=== PATIENT | female | born 1955 | race Caucasian/White ===

== ENCOUNTER 2021-10-08 15:11 | Emergency (ER) | payer MEDICAID, SELFPAY ==
--- NOTE | ~2021-10-08 | CT_ITS ---
EXAMINATION: CT abdomen pelvis w con DATE: 10/08/2021 16:56 INDICATION: Abdominal pain. History of diverticulitis. TECHNIQUE: Computed tomography (CT) of the abdomen and pelvis was performed with 100 CC Omnipaque 350 intravenous contrast. Automated exposure control and iterative reconstruction technique were employe d. Exam dose: 1291.07 mGy-cm total exam DLP. COMPARISON: None. FINDINGS: The lung bases are clear of consolidation. Normal heart size. No pericardial or pleural eff usion. Calcified left hilar nodes, consistent with old granulomatous disease. Small sliding hiatal hernia. The liver, gallbladder, spleen, pancreas are unremarkable except for a calcification of the body of t he pancreas which may indicate mild chronic pancreatitis. No bile duct or pancreatic duct dilatation. No gallbladder wall thickening or pericholecystic fluid or fat stranding. Normal morphology of the adrenal glands. No renal mass lesion or urinary tract calculus or hydroureteronephrosis. The urinary bladder is unrem arkable. Normal caliber and atherosclerotic calcification of the abdominal aorta. No intraperitoneal or retrop eritoneal or pelvic mass lesion or adenopathy or ascites. Status post hysterectomy. There is prominent pericolic fat stranding at the distal descending and proximal sigmoid colon in the left lower quadrant, in addition to some lateral conal fascial thickening, consistent with diverticu litis, without evidence of abscess. There are numerous diverticula of the sigmoid: Distal descending colon. No bowel obstruction is evident. Normal appendix. Small fat-containing umbilical hernia. No suspicious osteolytic or osteoblastic lesions. There is degenerative spurring of the lower thoraci c spine. Mildly severe degenerative disc disease at L2-3. IMPRESSION: Diverticulitis at the junction of the distal descending and proximal sigmoid colon in th e left lower quadrant; no abscess Small sliding hiatal hernia Normal appendix Mild chronic pancreatitis Reviewed, dictated and finalized at [facility]. Reviewed, dictated and finalized at [facility]. IMPRESSION: Diverticulitis at the junction of the distal descending and proxim al sigmoid colon in the left lower quadrant; no abscess Small sliding hiatal hernia Normal appendix Mild chronic pancreatitis
[2021-10-08 15:26] VITALS: BP 149/67; PULSE 88; RESP 18; TEMP 37.1; O2SAT 99
[2021-10-08 16:01] LABS: Basophils Percent Auto 0.3 % (0.2-1.2); Eosinophils Absolute Auto 0.2 K/mm3 (0-0.3); Eosinophils Percent Auto 2.3 % (0-4.4); Hematocrit 41.3 % (37.0-47.0); Hemoglobin 13.4 g/dL (12.0-15.0); Immature Granulocyte Absolute 0.02 K/mm3 (0.00-0.031); Immature Granulocyte Percent A 0.2 % (0-0.5); Lymphocytes Absolute Auto 1.86 K/mm3 (0.9-3.2); Lymphocytes Percent Auto 20.4 % (18.3-44.2); Mean Corpuscular HGB Conc 32.4 g/dl (32-36); Mean Corpuscular Hemoglobin 28.8 pg (26-34); Mean Corpuscular Volume 88.6 fl (80-100); Mean Platelet Volume 9.1 fl (7.4-10.4); Monocytes Absolute Auto 0.4 K/mm3 (0.1-0.6); Monocytes Percent Auto 4.6 % (2.6-8.5); Neutrophils Absolute Auto 6.6 K/mm3 (1.3-6.7); Neutrophils Percent Auto 72.2 % (45.5-73.1); Platelet Count Result 210 k/mm3 (150-375); Red Blood Count 4.66 M/mm3 (4.2-5.4); Red Cell Distribution Width 11.9 % (11.5-14.5); White Blood Count 9.1 K/mm3 (4.5-10.0)
[2021-10-08 16:04] LABS: Add Urine Microscopic? NO; Appearance Urine Clear (Clear); Bilirubin Urine Negative (Negative); Blood Urine Negative (Negative); Color Urine Yellow (Yellow); Glucose Urine UA Negative (Negative); Ketones Urine Negative (Negative); Leukocyte Esterase Ur Negative LEU/UL (Negative); Nitrate Urine Negative (Negative); Protein Urine Negative (Negative); Specific Grav Ur 1.016 (1.001-1.035); Urobilinogen Urine Negative mg/dL (<2.0)
[2021-10-08 16:13] LABS: Alanine Aminotransferase 31 U/L (4-35); Albumin Level 4.6 g/dL (3.5-5.1); Alkaline Phosphatase 97 U/L (38-126); Anion Gap 9 mmol/L (8-16); Aspartate Amino Transferase 36 U/L (14-36); Bilirubin,Total 0.6 mg/dL (0.2-1.3); Blood Urea Nitrogen 13 mg/dL (7-17); Calcium 9.2 mg/dL (8.4-10.2); Carbon Dioxide 25 mmol/L (22-30); Chloride 102 mmol/L (98-107); Estimated CRCL calculation 77 ml/min; Estimated Glomerular Filt Rate > 60; Glucose 165 mg/dL (65-110); Lipase 99 U/L (23-300); Potassium 3.9 mmol/L (3.4-5.0); Sodium 136 mmol/L (137-145)
[2021-10-08] MEDS: SODIUM CHLORIDE 0.9% IV 1,000 ML 999 ML IV CONT (16:13)
[2021-10-08 17:14] VITALS: BP 146/66; PULSE 82; RESP 14; O2SAT 100
[2021-10-08 18:13] VITALS: BP 134/78; PULSE 85; RESP 15; O2SAT 100
--- NOTE | 2021-10-08 19:37 | ED.ABDPAIN ---
HPI - Abdominal Pain General Chief Complaint: Abdominal Pain Stated Complaint: pain in lower left side, hx diverticulitis Time Seen by Provider: 10/08/21 15:59 Source: patient and RN notes reviewed Mode of arrival: ambulatory Limitations: no limitations History of Present Illness HPI narrative: Patient is 66 years old white female presented to the ED with left lower quadrant pain that started 1 week ago associated with intermittent diarrhea. Patient reported having similar symptoms in the past secondary to diverticulitis. She denies any fever, chills, nausea, vomiting. Related Data Allergies Allergy/AdvReac Type Severity Reaction Status Date / Time Penicillins Allergy Hives Verified 10/08/21 15:49 Review of Systems Review of Systems: All systems reviewed & are unremarkable except as noted in HPI and below Exam Narrative: General appearance: Well-developed, well-nourished Skin: Normal color Head: Normocephalic, nontraumatic Eyes: Clear conjunctiva ENT: Oropharynx normal, ears normal, nose normal Neck: Supple, nontender Chest and respiratory: Airway patent, no respiratory distress, no accessory muscle use Heart: Regular rate/rhythm Abdomen: Soft, diffuse tenderness lower abdomen mainly left lower quadrant, slight guarding, no rebound, slight no organomegaly, quiet bowel sounds Vascular: Normal peripheral pulses, normal capillary refill. Musculoskeletal: Normal range of motion, nontender back Neurologic: Alert and oriented ?3, [employer] is normal as tested, no gross motor deficit Course Course Emergency Course: Diverticulitis, stable Vital Signs Vital signs: Vital Signs Temperature 37.1 C 10/08/21 15:26 Pulse Rate 88 10/08/21 15:26 Respiratory Rate 18 10/08/21 15:26 Blood Pressure 149/67 H 10/08/21 15:26 Pulse Oximetry 99 10/08/21 15:26 Temperature 37.1 C 10/08/21 15:26 Pulse Rate 85 10/08/21 18:13 Respiratory Rate 15 10/08/21 18:13 Blood Pressure 134/78 10/08/21 18:13 Pulse Oximetry 100 10/08/21 18:13 MDM - Abdominal Pain Differential Diagnosis Differential diagnosis: Likely abdominal pain, acute appendicitis, constipation, diverticulitis, pancreatitis and small bowel obstruction Lab Data Result diagrams: 10/08/21 15:51 10/08/21 15:51 Labs: Lab Results 10/08/21 10/08/21 10/08/21 Range/Units 15:51 15:51 15:51 WBC 9.1 (4.5-10.0) K/mm3 RBC 4.66 (4.2-5.4) M/mm3 Hgb 13.4 (12.0-15.0) g/dL Hct 41.3 (37.0-47.0) % MCV 88.6 (80-100) fl MCH 28.8 (26-34) pg MCHC 32.4 (32-36) g/dl RDW 11.9 (11.5-14.5) % Plt Count 210 (150-375) k/mm3 MPV 9.1 (7.4-10.4) fl Immature Gran % (Auto) 0.2 (0-0.5) % Neut % (Auto) 72.2 (45.5-73.1) % Lymph % (Auto) 20.4 (18.3-44.2) % [place] % (Auto) 4.6 (2.6-8.5) % Eos % (Auto) 2.3 (0-4.4) % Baso % (Auto) 0.3 (0.2-1.2) % Lymph # (Auto) 1.86 (0.9-3.2) K/mm3 [place] # (Auto) 0.4 (0.1-0.6) K/mm3 Eos # (Auto) 0.2 (0-0.3) K/mm3 Baso # (Auto) 0.0 (0.0-0.1) K/mm3 Abs Immat Gran (auto) 0.02 (0.00-0.031) K/mm3 Absolute Neuts (auto) 6.6 (1.3-6.7) K/mm3 Absolute Nucleated RBC 0.0 (0.0-0.012) K/mm3 Nucleated RBC % 0.0 (0.0-0.2) % Sodium 136 L (137-145) mmol/L Potassium 3.9 (3.4-5.0) mmol/L Chloride 102 (98-107) mmol/L Carbon Dioxide 25 (22-30) mmol/L Anion Gap 9 (8-16) mmol/L BUN 13 (7-17) mg/dL Creatinine 0.70 (0.7-1.0) mg/dL Estim Creat Clear Calc 77 ml/min Estimated GFR > 60 (59 - ) Glucose 165 H (65-110) mg/dL Calcium 9.2 (8.4-10.2) mg/dL Total Bilirubin 0.6 (0.2-1.3) mg/dL AST 36 (1
[2021-10-08] MEDS: metroNIDAZOLE 250 MG TABLET 500 MG PO (20:47)
[2021-10-08 20:48] VITALS: BP 162/92; PULSE 82; RESP 16; O2SAT 100
[2021-10-08] MEDS: levoFLOXacin 750 MG TABLET PO (20:48)
== END 2021-10-08 20:57 | disposition home or self-care (01) ==
PROVIDERS: Emergency Provider Emergency Medicine
DX: K57.32 Diverticulitis of large intestine without perforation or abscess without bleeding (principal)
CPT/HCPCS: 36415; 74177; 80053; 81003; 83690; 85025; 96360; 99284; A9270; J7030; Q9967

== ENCOUNTER 2024-09-23 13:51 | Emergency (ER) | payer MEDICARE, MEDICAID, SELFPAY ==
--- NOTE | ~2024-09-23 | XR_ITS ---
EXAMINATION: XR foot LT min 3V DATE: 09/23/2024 14:31 INDICATION: Left foot pain and swelling post fall TECHNIQUE: Dorsoplantar, two oblique and lateral views of the left foot were obtained. COMPARISON: None. FINDINGS: Subtle nondisplaced fracture at the neck of the fifth metatarsal. Alignment remains essentially anato kajal. No other acute fractures identified. There is flattening of the articular surface at the head of the second metatarsal without underlying subarticular lucency or sclerosis consistent with sequela o f chronic osteonecrosis (Freiberg's infraction). Small Achilles and plantar calcaneal spurs. 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 Mild soft tissue swelling at the dorsolateral aspect of the forefoot. No ankle joint effu gus. IMPRESSION: 1. Nondisplaced extra articular fracture at the distal neck of the right fifth metatarsal. Reviewed, dictated and finalized at location A.
[2024-09-23 14:00] VITALS: BP 153/91; PULSE 91; RESP 20; TEMP 36.8; O2SAT 99
--- NOTE | 2024-09-23 14:29 | ED_ITS ---
HPI - Extremity Injury (Lower) General Chief Complaint: Extremity Injury, Lower Stated Complaint: Fall Injury/Left Foot Time Seen by Provider: 09/23/24 14:29 Source: patient Mode of arrival: ambulatory Limitations: no limitations History of Present Illness HPI Narrative: 69-year-old female presents with complaint of pain to left foot for the last 3- 4 weeks. Patient states that she noticed pain to left foot after falling out of her lawn chair. States she fell asleep outside on deck and lawn chair tipped over and thinks that it hit her foot. Ambulatory with limp. States she thought pain would have been improved by now, concern for fracture. All systems reviewed and negative except as noted above. Related Data Home Medications ?Medication ?Instructions ?Recorded ?Confirmed ?Last Taken ?Type amlodipine 10 mg tablet mg 09/23/24 Unknown History atorvastatin 40 mg tablet mg 09/23/24 Unknown History buspirone 5 mg tablet mg 09/23/24 Unknown History fluoxetine 20 mg capsule mg 09/23/24 Unknown History fluoxetine 40 mg capsule mg 09/23/24 Unknown History hydrochlorothiazide 25 mg tablet mg 09/23/24 Unknown History levothyroxine 75 mcg tablet mcg 09/23/24 Unknown History losartan 100 tablet 09/23/24 Unknown History mg-hydrochlorothiazide 12.5 mg tablet ropinirole 4 mg tablet mg 09/23/24 Unknown History tirzepatide 2.5 mg/0.5 mL mg subcut 09/23/24 Unknown History subcutaneous pen injector (Mounjaro) Allergies Allergy/AdvReac Type Severity Reaction Status Date / Time Penicillins Allergy Hives Verified 09/23/24 14:07 Review of Systems Review of Systems: CONSTITUTIONAL: Denies fever, chills, or sweats. EYES: Denies visual changes, redness, or discharge. ENT: Denies rhinorrhea, congestion, sore throat, or otalgia. CARDIOVASCULAR: Denies chest pain, palpitations, or edema. RESPIRATORY: Denies cough or dyspnea. GASTROINTESTINAL: Denies abdominal pain, nausea, vomiting, or diarrhea. GENITOURINARY: Denies dysuria or hematuria. SKIN: Denies rash or itching. MUSCULOSKELETAL: Reports pain and swelling to left foot. NEUROLOGIC: Denies headache, numbness, or weakness. PSYCHIATRIC: Denies anxiety or depression. All other systems reviewed are negative, except as documented in HPI. PMFSH Comments At time of signature, agree with nursing past medical, surgical, social and family history. There is no relevant family history pertinent to the presenting complaint. Exam Narrative: GENERAL: This is a well-nourished, well-developed patient, in no apparent distress. HEAD: normocephalic, atraumatic. EYES: PERRL. Sclera clear/white. Vision is grossly intact. EARS: External ears normal NOSE: External nose normal NECK: Neck supple, non-tender without lymphadenopathy, masses or thyromegaly. CARDIOVASCULAR: Regular rate and rhythm without murmurs, gallops, or rubs. RESPIRATORY: Clear to auscultation. Breath sounds equal bilaterally. No wheezes, rales, or rhonchi. SKIN: warm, Dry, intact with no suspicious lesions or rash, good texture and turgor. NEURO: awake, alert, and oriented to person, place and time. There were no obvious focal neurologic abnormalities. EXTREMITIES: Tenderness to 5th metatarsal on palpation with mild swelling and bruising. No deformity noted. CMS intact. Course Course Level of Care: Express Care Visit Vital Signs Vital signs: Vital Signs Temperature 36.8 C 09/23/24 14:00 Pulse Rate 91 09/23/24 14:00 Respiratory Rate 20 09/23/24 14:00 Blood Pressure 153/91 H 09/23/24 14:00 Pulse Oximetry 99 09/23/24 14:00 Oxygen Delivery Room Air 09/23/24 14:00 Temperature 36.8 C 09/23/24 14:00 Pulse Rate 91 09/23/24 14:00 Respiratory Rate 20 09/23/24 14:00 Blood Pressure 153/91 H 09/23/24 14:00 Pulse Oximetry 99 09/23/24 14:00 Oxygen Delivery Room Air 09/23/24 14:00 Reviewed MDM - Extremity Injury (Lower) MDM Narrative Medical decision making narrative: discussed x-ray results with patient. Place and postop shoe. Refer to orthopedics. Patient agrees with plan of care. Please be advised this is a medical document. It is intended for [id number] communication. It is written in medical language and may contain unfamiliar abbreviations or verbiage. Medical documents are intended to carry relevant information, facts as evident, and the clinical opinion of the practitioner at the time of the encounter. This report may have been done utilizing a voice recognition system. Attempts have been made to correct errors. However, there may be uncorrected grammatical, spelling, and recognition errors present. The file time of this note does not necessarily represent the time of service. Imaging Data My impression: agree with radiologist Radiologist's impression: EXAMINATION: XR foot LT min 3V DATE: 09/23/2024 14:31 INDICATION: Left foot pain and swelling post fall TECHNIQUE: Dorsoplantar, two oblique and lateral views of the left foot were obtained. COMPARISON: None. FINDINGS: Subtle nondisplaced fracture at the neck of the fifth metatarsal. Alignment remains essentially anatomic. No other acute fractures identified. There is flattening of the articular surface at the head of the second metatarsal without underlying subarticular lucency or sclerosis consistent with sequela of chronic osteonecrosis (Freiberg's infraction). Small Achilles and plantar calcaneal spurs. Mild polyarticular osteoarthritis at the first metatarsophalangeal and a few tarsometatarsal and interphalangeal joints. Mild soft tissue swelling at the dorsolateral aspect of the forefoot. No ankle joint effusion. IMPRESSION: 1. Nondisplaced extra articular fracture at the distal neck of the right fifth metatarsal. Discharge Plan Discharge Clinical Impression: Closed nondisplaced fracture of fifth left metatarsal bone Qualifiers: Encounter type: initial encounter Qualified Code(s): S92.355A - Nondisplaced fracture of fifth metatarsal bone, left foot, initial encounter for closed fracture Patient Disposition: Home Condition: Stable Instructions: Foot Fracture in Adults (ED) Additional Instructions: The x-ray of your left foot shows a fracture to your left 5th metatarsal bone. Wear post op shoe when ambulatory. Elevate when at rest. take ibuprofen or Tylenol every 6-8 hours as needed for pain. Call and schedule follow-up appointment with agricultural specialist. Patient Language: Australian Prescriptions: No Action fluoxetine 40 mg capsule atorvastatin 40 mg tablet buspirone 5 mg tablet levothyroxine 75 mcg tablet amlodipine 10 mg tablet hydrochlorothiazide 25 mg tablet fluoxetine 20 mg capsule ropinirole 4 mg tablet losartan-hydrochlorothiazide 100-12.5 mg tablet Mounjaro 2.5 mg/0.5 mL pen injector SUBCUT Follow-up/Referrals: Dru,Jad Garcia MD [Primary Care Provider] - Jl Hernandes MD [Physician] - (follow up with agricultural specialist for fracture care) Time of Disposition: 14:52
--- OUTSIDE RECORDS SUMMARY | 2024-09-23 15:21 | XMS_ITS | Referral Summary ---
Author Organization [facility] Address [address] [place] [id number] Care Team Providers Care Mat Cutter Name Role Phone Connie Jordan MD Unavailable Rodrick Booker MD Unavailable Leonila Mac MD Unavailable [phone] Jad Gonsales MD Primary Care Provider Koko Demarco MD Unavailable Encounters Date Type Department Care Team Description 09/04/19 2:00 PM CDT Office Visit [facility] Sleep Medicine at [address] [place] [address] Connie Jordan MD Snoring (Primary Dx); Hypersomnia; Restless leg syndrome; Insomnia, unspecified type 08/28/19 Telephone [facility] Primary Care at [address] [place] [address] Jad Gonsales MD issues with eyes 08/28/19 2:30 PM CDT Office Visit [facility] Primary Care at [address] [place] [address] Jad Gonsales MD ANJELICA (generalized anxiety disorder) (Primary Dx); Acquired hypothyroidism; Hypertension associated with diabetes (HCC); Moderate episode of recurrent major depressive disorder (HCC); Psychophysiologic insomnia; Class 1 obesity due to excess calories with serious comorbidity and body mass index (BMI) of 33.0 to 33.9 in adult; Heart murmur; Type 2 diabetes mellitus without complication, without long-term current use of insulin (HCC) 08/01/19 25 3:00 PM MOLD YARD CRANE OPERATOR Office Visit [facility] Diabetes Endocrine Care at [address] [place] [address] Rut Patel NP Type 2 diabetes mellitus without complication, without long-term current use of insulin (HCC) (Primary Dx); Hyperlipidemia associated with type 2 diabetes mellitus (HCC); Hypertension associated with diabetes (HCC); Acquired hypothyroidism; Class 2 severe obesity due to excess calories with serious comorbidity and body mass index (BMI) of 36.0 to 36.9 in adult (HCC) 07/30/19 25 Nurse Triage [facility] Primary Care at [address] [place] [address] Jad Gonsales MD 07/11/19 25 Telephone [facility] Gastroenterology at [address] [place] [address] Mery Phan 07/11/19 25 Orders Only [facility] Gastroenterology at [address] [place] [address] Rodrick Booker MD 07/11/19 25 11:22 AM MOLD YARD CRANE OPERATOR Anesthesia Event [address] [address] Andrés Moreno MD 07/11/19 25 12:00 PM MOLD YARD CRANE OPERATOR - 07/11/19 25 12:35 PM MOLD YARD CRANE OPERATOR Surgery [address] [address] Rodrick Booker MD ESOPHAGOGASTRODUODENOSCOPY 07/11/19 25 10:47 AM MOLD YARD CRANE OPERATOR - 07/11/19 25 12:32 PM MOLD YARD CRANE OPERATOR Hospital Encounter [address] [address] Rodrick Booker MD Discharge Disposition: Discharge to home or self care from Last 3 Months Allergies Active Allergy Reactions Criticality Noted Date Comments Metformin Diarrhea,Nausea & Vomiting Low 3 Penicillins Rash Medium 07/02/2020 Medications Accu-Chek Guide Glucose Meter misc USE DAILY TO CHECK GLUCOSE LEVELS 09/17/19 23 Active ondansetron ODT (ZOFRAN-ODT) 4 mg disintegrating tablet Take 1 tablet (4 mg total) by mouth every 8 (eight) hours as needed for nausea or vomiting 30 tablet 3 04/18/20 23 Active amLODIPine (NORVASC) 10 mg tabletIndications: Hypertension associated with diabetes (HCC) Take 1 tablet (10 mg total) by mouth nightly 100 tablet 01/10/20 24 Active ergocalciferol (VITAMIN D) 50,000 unit capsuleIndications :Vitamin D deficiency Take 1 capsule (50,000 Units total) by mouth once a week 12 capsule 01/18/20 24 Active triamcinolone (KENALOG) 0.1 % creamIndications:S kin Inflammation Apply topically 2 (two) times a day 30 g 01/18/20 24 Active gabapentin (NEURONTIN) 600 mg tabletIndications: RLS (restless legs syndrome) Take 1 tablet (600 mg total) by mouth 2 (two) times a day 01/19/20 24 Active tirzepatide (MOUNJARO) 7.5 mg/0.5 mL pen injectorIndication s:type 2 diabetes mellitus Inject 7.5 mg under the skin once a week E11.65 6 mL 4 01/30/20 24 Active meclizine (ANTIVERT) 25 mg tablet Take 1 tablet (25 mg total) by mouth 3 (three) times a day as needed for dizziness 30 tablet 02/13/20 24 Active Additional Information Patient not taking.Reported on 09/03/2024 omeprazole (PriLOSEC) 40 mg capsuleIndications :Gastroesophageal reflux disease with esophagitis without hemorrhage Take 1 capsule (40 mg total) by mouth 2 (two) times a day before breakfast and dinner 180 capsule 1 02/14/20 24 Active famotidine (PEPCID) 40 mg tabletIndications: Gastroesophageal reflux disease with esophagitis without hemorrhage Take 1 tablet (40 mg total) by mouth 2 (two) times a day 180 tablet 1 02/14/20 24 Active busPIRone (BUSPAR) 10 mg tabletIndications: ANJELICA (generalized anxiety disorder) Take 1 tablet by mouth twice daily as needed for anxiety 90 tablet 1 03/18/20 24 Active Accu-Chek Guide test strips stripIndications:T ype 2 diabetes mellitus with diabetic neuropathy, without long-term current use of insulin ([facility]) USE 1 STRIP TO MONITOR BLOOD SUGARS DAILY 50 each 03/19/20 Active Accu-Chek Softclix Lancets lancetsIndications :Type 2 diabetes mellitus with diabetic neuropathy, without long-term current use of insulin ([facility]) USE 1 LANCET TO CHECK GLUCOSE ONCE DAILY 100 each 03/19/20 Active docusate sodium (COLACE) 100 mg capsuleIndications :constipation Take 1 capsule (100 mg total) by mouth 2 (two) times a day for 7 days 14 capsule 04/04/20 Active hyoscyamine (OSCIMIN) 0.125 mgIndications:Urin john Incontinence Take 1 tablet (125 mcg total) by mouth every 4 (four) hours as needed (hiccups. stomach spasm) for up to 5 days 30 tablet 04/04/20 Active senna-docusate (PERICOLACE) 8.6-50 mg Take 1 tablet by mouth daily 30 tablet 04/09/20 Active losartan-hydroCHLO ROthiazide (HYZAAR) 100-12.5 mg per tabletIndications: Hypertension associated with diabetes ([facility]) Take 1 tablet by mouth daily 90 tablet 3 04/16/20 24 Active atorvastatin (LIPITOR) 40 mg tabletIndications: Type 2 diabetes mellitus with diabetic neuropathy, without long-term current use of insulin ([facility]),Hyperlipidem ia associated with type 2 diabetes mellitus ([facility]) Take 1 tablet (40 mg total) by mouth nightly 90 tablet 3 04/16/20 24 025 Active levothyroxine (SYNTHROID) 75 mcg tabletIndications: Acquired hypothyroidism Take 1 tablet (75 mcg total) by mouth daily before breakfast 90 tablet 3 04/16/20 24 025 Active FLUoxetine (PROzac) 40 mg capsuleIndications :ANJELICA (generalized anxiety disorder),Moderate episode of recurrent major depressive disorder (HCC) Take 1 capsule (40 mg total) by mouth daily 90 capsule 3 04/16/20 24 025 Active rOPINIRole (REQUIP) 4 mg tabletIndications: Restless legs Take 1 tablet (4 mg total) by mouth nightly 90 tablet 1 04/21/20 24 025 Active metoclopramide (REGLAN) 10 mg tablet Take 1 tablet (10 mg total) by mouth 3 (three) times a day before meals 90 tablet 2 07/11/19 25 Active Additional Information Patient not taking.Reported on 09/03/2024 traZODone (DESYREL) 100 mg tablet Take 1 tablet (100 mg total) by mouth nightly 90 tablet 3 08/08/19 25 026 Active Active Problems Problem Noted Date Diagnosed Date History of gastric polyp 06/13/2024 Psychophysiologic insomnia 04/16/2024 Assessment & Plan (08/27/2024 2:59 PM CDT): - chronic condition, not at goal - has known hx of anxiety, depression, past trauma and diagnosis of bipolar disorder - currently on Trazodone 100 mg nightly - established with sleep medicine and told to continue current management - has been referred to psychiatry by sleep medicine provider which is yet to establish care - need psychiatric assistance, continue with trazodone in mean time Assessment & Plan (04/16/2024 11:51 AM MOLD YARD CRANE OPERATOR): - chronic condition, controlled - has known hx of anxiety, depression, past trauma and diagnosis of bipolar disorder - currently on Trazodone 100 mg nightly - established with sleep medicine and told to continue current management - has been referred to psychiatry by sleep medicine provider - continue current management S/P Georgina fundoplication (w ithout gastrostomy tube) procedure 04/09/2024 GERD without esophagitis 04/03/2024 Assessment & Plan (08/27/2024 2:47 PM CDT): -Chronic, improving -Recent hospitalization for scheduled robotic assisted paraesophageal hernia repair with Toupet fundoplication, Intraoperative esophagogastroduodenoscopy, and Excision of mediastinal lymph node with Dr. Demarco -Advised patient to keep scheduled appointment with surgery on 04/09/2024 -Continue on Colace 100 mg twice daily and [place] 5-325 mg every 6 hours as needed for pain -Start OTC MiraLax daily as needed for constipation -Continue on omeprazole 40 mg twice daily and famotidine 40 mg twice daily -Continue following activity and dietary restrictions as advised by surgery -Follow up with PCP as scheduled EGD 07/06 Impression: - Normal esophagus. - A large amount of food (residue) in the stomach concerning for gastroparesis with Mounjaro use. - No specimens collected. Recommendation: - Patient has a contact number available for emergencies. The signs and symptoms of potential delayed complications were discussed with the patient. Return to normal activities tomorrow. Written discharge instructions were provided to the patient. - Discharge patient to home (with escort). - Continue Prilosec (omeprazole) 40 mg PO daily. - Patient does not wish to be taken off of Mounjaro, we will do a 3 months trial of Reglan 10mg TID before meals - Low residue, low fat, small frequent meals - Follow up in GI clinic in a month. Assessment & Plan (04/08/2024 2:05 PM CDT): -Chronic, improving -Recent hospitalization for scheduled robotic assisted paraesophageal hernia repair with Toupet fundoplication, Intraoperative esophagogastroduodenoscopy, and Excision of mediastinal lymph node with Dr. Demarco -Advised patient to keep scheduled appointment with surgery on 04/09/2024 -Continue on Colace 100 mg twice daily and [place] 5-325 mg every 6 hours as needed for pain -Start OTC MiraLax daily as needed for constipation -Continue on omeprazole 40 mg twice daily and famotidine 40 mg twice daily -Continue following activity and dietary restrictions as advised by surgery -Follow up with PCP as scheduled S/P TKR (total knee replacement), left [facility] health care 01/19/2024 Assessment & Plan (01/19/2024 4:57 AM CDT): - New or chronic worsening conditions: Hypertension, vitamin-D, hiatal hernia with acid reflux symptoms - Mental health: no significant psychiatric/mental health conditions affecting her day to day functioning - Dental health: Recommend regular dental care and cleaning. Discussed importance of regular tooth brushing, flossing, and dental visits. - Nutrition: Recommend moderation in sodium/caffeine intake, saturated fat and cholesterol, caloric balance, sufficient intake of fresh fruits, vegetables - Exercise: Recommend to exercise at least 30 minutes moderate to vigorous exercise most days of the week. (minimum 150 minutes weekly) - Immunizations: Age and sex appropriate immunizations reviewed and offered - Cervical Cancer screening: not indicated - Breast Cancer screening: Recommended, mammogram set up to be done in few days - Colon cancer screening: Up to date - Lung cancer screening: not applicable - Bone desnity/osteoporosis screening:Up to date - control: not applicable RLS (restless legs syndrome) 01/18/2024 Overview (04/16/2024): Following with sleep medicine Assessment & Plan (04/16/2024 12:13 PM MOLD YARD CRANE OPERATOR): - chronic condition - uses Ropinirole 4 mg nightly - discontinue Amitriptyline 25 mg nightly which she rarely uses - has gabapentin 600 mg twice daily but mostly takes the nighttime dose of the gabapentin - established with sleep Medicine, Dr. Jordan - continue current management, has f/u glynn with sleep medicine provider Lab Results Component Value Date FERRITIN 123 08/22/2022 Assessment & Plan (01/19/2024 4:54 AM CDT): - chronic condition - uses Ropinirole 4 mg nightly - also uses Amitriptyline from time to time - has gabapentin 600 mg 3 times daily but mostly takes the nighttime dose of the gabapentin - established with sleep Medicine, Dr. Jordan - continue current management Lab Results Component Value Date FERRITIN 123 08/22/2022 Chronic eczematous otitis externa of both ears 0 01/18/2024 Assessment & Plan (01/19/2024 4:36 AM CDT): - chronic condition, worse, uncontrolled - recommend use of topical steroids, script provided for topical triamcinolone cream to use PRN, see orders Vitamin D deficiency 08/04/2023 Assessment & Plan (01/18/2024 4:12 PM CDT): - chronic condition, not at goal - currently not on Vitamin D supplementation - start Vitamin D2 27043 weekly, script sent in - after 12 weeks switch to 5000IU daily Lab Results Component Value Date 25HYDROVITD 17 (L) 07/25/2023 25HYDROVITD 18 (L) 01/22/2021 Assessment & Plan (08/04/2023 11:36 AM MOLD YARD CRANE OPERATOR): Labs ordered, will follow. Vit D3 2,000 international units recommended daily. Esophagitis 07/03/2023 Rosacea 05/23/2023 Assessment & Plan (01/18/2024 4:10 PM CDT): - Chronic condition, stable, currently using metronidazole gel, continue therapy Assessment & Plan (05/23/2023 9:51 PM MOLD YARD CRANE OPERATOR): Refill given for metronidazole gel. OAB (overactive bladder) 03/16/2023 Urinary incontinence, mixed 03/16/2023 Dependent edema 10/13/2022 Assessment & Plan (01/16/2023 11:11 AM CDT): Clinically improved, continue current prescription medications, hydrochlorothiazide. Class 1 obesity due to exces s calories with serious comorbidity and body mass index (BMI) of 33.0 to 33.9 in adult 07/12/2022 Assessment & Plan (08/27/2024 2:50 PM CDT): Wt Readings from Last 3 Encounters: 08/27/24 82.6 kg (182 lb) 08/01/24 83.4 kg (183 lb 12.8 oz) 07/11/24 82.6 kg (182 lb) Body mass index is 33.28 kg/m . - chronic condition, not at goal, but improved some weight loss noted since last visit, on Mounjaro for DM2 - BMI Follow-up includes: nutrition counseling, exercise counseling and education provided - Recommend to exercise at least 30 minutes moderate to vigorous exercise most days of the week. (minimum 150 minutes weekly) - continue current management - Co-morbidities - T2DM, hypertension, hyperlipidemia Assessment & Plan (04/16/2024 11:43 AM MOLD YARD CRANE OPERATOR): Wt Readings from Last 3 Encounters: 04/16/24 88.5 kg (195 lb) 04/09/24 90.6 kg (199 lb 11.2 oz) 04/08/24 91.6 kg (202 lb) Body mass index is 35.66 kg/m . - chronic condition, not at goal, small weight loss noted - BMI Follow-up includes: nutrition counseling, exercise counseling and education provided - Recommend to exercise at least 30 minutes moderate to vigorous exercise most days of the week. (minimum 150 minutes weekly) - Co-morbidities - T2DM, hypertension, hyperlipidemia Assessment & Plan (04/08/2024 2:04 PM CDT): -chronic, not at/near goal goal BMI <30 Healthy, high-protein, lower carbohydrate, lower fat lifestyle and exercise for 150min/week recommended Assessment & Plan (03/12/2024 4:51 PM CDT): Wt Readings from Last 3 Encounters: 03/12/24 94.8 kg (209 lb) 03/04/24 94.3 kg (208 lb) 02/16/24 94.3 kg (208 lb) Body mass index is 38.22 kg/m . -Stable, not at goal of <30 bmi -Discussed recommendations for exercise at least 30 minutes moderate to vigorous exercise as tolerated most days of the week. (minimum 150 minutes weekly) -Discussed importance of well-balanced diet. Assessment & Plan (02/14/2024 10:02 AM CDT): Wt Readings from Last 3 Encounters: 02/14/24 94.8 kg (209 lb) 02/13/24 94.8 kg (209 lb 1.6 oz) 02/12/24 94.8 kg (209 lb) Body mass index is 38.22 kg/m . -Stable, not at goal of <30 bmi -Discussed recommendations for exercise at least 30 minutes moderate to vigorous exercise as tolerated most days of the week. (minimum 150 minutes weekly) -Discussed importance of well-balanced diet. Assessment & Plan (01/30/2024 4:29 PM CDT): This is a chronic condition which has improved with the addition of mounjaro. Twenty-four lbs. Weight loss since last office visit Encouraged healthy eating which includes a low carb diet. Avoiding processed foods, sweets and fried foods. Encouraged 30 minutes of walking at least 5 days per week Discussed that exercise can be broken down into small sessions- for example 2- 15 minutes sessions or 3- 10 minutes sessions. Assessment & Plan (01/19/2024 4:35 AM CDT): Wt Readings from Last 3 Encounters: 01/18/24 95.2 kg (209 lb 12.8 oz) 01/04/24 95.7 kg (211 lb) 12/25/23 95.3 kg (210 lb) Body mass index is 38.36 kg/m . - chronic condition, not at goal - BMI Follow-up includes: nutrition counseling, exercise counseling and education provided - Recommend to exercise at least 30 minutes moderate to vigorous exercise most days of the week. (minimum 150 minutes weekly) - Co-morbidities - T2DM, hypertension, hyperlipidemia Assessment & Plan (09/13/2023 8:40 AM CDT): This is a chronic condition which is worsening 2 lb weight gain since last office visit Did not start Januvia. States she does not like pill Will try mounjaro 2.5 mg weekly. Encouraged to call with condition report in 1 month Encouraged healthy eating Assessment & Plan (08/04/2023 11:33 AM MOLD YARD CRANE OPERATOR): Weight reduction, daily exercise and dietary modifications recommended., as obesity can complicate their diabetes mellitus, hypercholesterolemia, and hypertension Assessment & Plan (06/26/2023 9:32 PM MOLD YARD CRANE OPERATOR): Weight reduction, daily exercise and dietary modifications recommended., as obesity can complicate their diabetes mellitus and hypertension Assessment & Plan (06/16/2023 1:33 PM MOLD YARD CRANE OPERATOR): This is a chronic condition which continues 7 lb weight gain since last office visit Encouraged increased activity Ambulatory referral to visual educator/nutritional counseling Encouraged her to walk her 6 dogs twice a day to increase activity Assessment & Plan (02/20/2023 2:30 PM CDT): Weight reduction, daily exercise and dietary modifications recommended., as obesity can complicate their diabetes mellitus, hypercholesterolemia, and hypertension Assessment & Plan (01/16/2023 11:11 AM CDT): Weight reduction, daily exercise and dietary modifications recommended., as obesity can complicate their diabetes mellitus, hypercholesterolemia, and hypertension Assessment & Plan (09/13/2022 3:05 PM CDT): BMI Follow-up includes: nutrition counseling. Recommended healthy diet, incorporating fruits, vegetables and adequate amounts of water along with mild-moderate daily exercise as tolerated; . Assessment & Plan (09/10/2022 10:19 PM CDT): Weight reduction, daily exercise and dietary modifications recommended., as obesity can complicate their diabetes mellitus Assessment & Plan (07/12/2022 5:27 PM MOLD YARD CRANE OPERATOR): Weight reduction, daily exercise and dietary modifications recommended., as obesity can complicate their diabetes mellitus, hypercholesterolemia and hypertension Stress incontinence 03/08/2021 Overview (06/03/2021): Patient reports leakage of urine with coughing, sneezing. Has increased urinary frequency but denies dysuria, hematuria. Has hx of four pregnancies as well as hx of hysterectomy. Per patient, she had seen gynecology in the past and states that they had recommended a surgery for her urinary sx in the past but she did not pursue it at the time. - Kegel exercises did not help - Increasing oxybutynin from 5 mg BID to TID - Previously was referred to Urogyn but stated that she did not want to set the appointment since it was 4 months away. Encouraged her to set appointment and then she could always cancel if she wanted to in the future. Patient agreed, provided UroGyn clinic number Assessment & Plan (07/12/2022 5:28 PM MOLD YARD CRANE OPERATOR): Will need referral to urogyn for further eval/mgmt. Patient previously referred, but did not complete consult because she moved. Chronic nausea 03/08/2021 Overview (03/08/2021): Patient reports stable nausea with dry retching for the past 6 years, improved with laying down, not associated with food. She has hx of anorexia, bulimia and binge eating in the 1980s but denies any recent episodes of binges, restrictive eating or induced vomiting. Denies abd pain, CP, burning acid reflux, diarrhea, constipation, hematochezia, melena. Normal BMs every few days. Eating and drinking fine at home. EGD in 09/2020 showed benign appearing mild stenosis, small hiatal hernia, and dilation was done. She has not been taking omeprazole since she does not feel that she has acid reflux sx. She does report drinking 1 shot vodka and smoking marijuana before bed. States she tried Zofran in the past but didn't help much. - counseled patient to try stopping consuming vodka and smoking marijuana right before bedtime - RUQ US - Last CMP in 10/2020 wnl Assessment & Plan (01/19/2024 4:47 AM CDT): - chronic, long standing issue, persisting issue - follows with GI regarding this - has had workup including EGD< RUQ US, lab work - She has hx of anorexia, bulimia and binge eating in the 1980s - documentation from past shows marijuana use before bedtime - has tried Zofran without help per documentation reviewed - EGD in 09/2020 showed benign appearing mild stenosis, small hiatal hernia, and dilation was done - she is not scheduled for esophageal motility with 24-Hour pH/24 Hour pH Impedance Testing Assessment & Plan (09/13/2023 8:39 AM CDT): This is a chronic condition which is worsening 2 lb weight gain since last office visit Did not start Januvia. States she does not like pill Will try mounjaro 2.5 mg weekly. Encouraged to call with condition report in 1 month Encouraged healthy eating Assessment & Plan (04/22/2023 6:39 PM MOLD YARD CRANE OPERATOR): Has constant nausea for the past 10 years, better with lying down and worse with exertion and eating. Hx of bulimia, anxiety and depression Used to have dysphagia, which went away for the past couple of years, had benign stenosis on EGD 2020 that was dilated to 19 mm with TTS balloon, also noted to have small hiatal hernia that time. Occasional reflux and heartburn, not on acid reflux medications. Cut down on drinking, about 2 drinks over the weekend Avoids soda but still likes to eat cheeseburgers No NSAID or narcotic use RUQ US 2020 showed mild hepatomegaly and mild hepatic steatosis Labs from 06/2022 showed grossly unremarkable CBC and CMP, A1C 7.3 colonoscopy 09/2022 found to have 1 diminutive mucosal tag in the sigmoid colon as well as sigmoid diverticulosis. Random biopsies were negative Since last visit ad gastric emptying study from 02/2023 that showed rapid emptying with less than 3% left at 2 hours Interval labs from 02/21/2023 showed normal CMP, lipid panel, A1c 7.4, normal TSH Still having nausea, constant with or without eating, did not respond to reglan previously Bad heartburn, not currently on anything No bm for 3-4 days then would have diarrhea 3-4 times a day Plan Rapid gastric emptying can cause nausea, so can uncontrolled acid reflux in the setting of hiatal hernia, vs psychologic, functional or centrally mediated such as increased intracranial pressure or tumors Start omeprazole 40 mg daily Zofran PRN CTH with contrast for intractable nausea and vomiting Counseled on diet modifications that would help with rapid gastric emptying Assessment & Plan (01/17/2023 10:43 AM CDT): Has constant nausea for the past 10 years, better with lying down and worse with exertion and eating. Hx of bulimia, anxiety and depression Used to have dysphagia, which went away for the past couple of years, had benign stenosis on EGD 2020 that was dilated to 19 mm with TTS balloon, also noted to have small hiatal hernia that time. Occasional reflux and heartburn, not on acid reflux medications. Cut down on drinking, about 2 drinks over the weekend Avoids soda but still likes to eat cheeseburgers No NSAID or narcotic use [facility] 2020 showed mild hepatomegaly and mild hepatic steatosis Labs from 06/2022 showed grossly unremarkable CBC and CMP, A1C 7.3 colonoscopy 09/2022 found to have 1 diminutive mucosal tag in the sigmoid colon as well as sigmoid diverticulosis. Random biopsies were negative Plan Order gastric emptying study to rule out diabetic gastroparesis We will start trial of Reglan 10 mg t.i.d. Patient was counseled extensively on gastric paresis diet with multiple frequent meals that is low-fat, low-fiber low residue Given that patient's symptoms have not changed since her last EGD from 2020 we will hold off on repeating endoscopy at this time. Assessment & Plan (09/01/2022 2:34 PM CDT): This is a long-term chronic problem. She has another EGD is scheduled with GI in October. She has had workups in the past. Differential includes cyclic vomiting syndrome, Gastroparesis. I restarted her amitriptyline at bedtime which patient states she had been on for years but which she stopped after a dentist told her that she should take it anymore. This was some years back that she stopped it. Will start 25 mg at bedtime. Given her extensive mental health history I would not wish to start promethazine or other anti emetics and Zofran was not tolerated Assessment & Plan (07/29/2022 1:09 PM MOLD YARD CRANE OPERATOR): Prescription given, use as directed. Assessment & Plan (07/12/2022 5:27 PM MOLD YARD CRANE OPERATOR): Chronic, referred to GI for further eval/mgmt. ANJELICA (generalized anxiety disorder) 10/19/2020 Assessment & Plan (08/27/2024 2:57 PM CDT): Chronic condition, not at goal, persisting issue Used to see psychiatry Reports past diagnosis of Bipolar disorder, and now borderline personality disorder, anxiety, depression, PTSD Reports hx of eating disorder in the 1980s Doing counseling at [facility] but not medication assistance Currently on Prozac 40 mg daily 5/7 nighty, along with Trazodone 100 mg nightly only. She is also on Buspirone 10 mg BID with some inconsistency In past has been on Venlafaxine, Bupropion, Abilify, Celexa, ALprazolam, Mirtazapine Recommend psychiatric assistance (used to see psychiatry at [facility] but no longer after provider commented about her obesity that she did not like) --> referral to Psychiatry was also placed by sleep medicine provider when she established care on 03/04/2024 ( she has received paperwork to complete before she is seen which she is yet to do but is yet to do it still and submit it Continue current management for now but discussed better management is needed Assessment & Plan (04/16/2024 12:19 PM MOLD YARD CRANE OPERATOR): Chronic condition, not at goal, persisting issue Used to see psychiatry Reports past diagnosis of Bipolar disorder, and now borderline personality disorder, anxiety, depression, PTSD Reports hx of eating disorder in the 1980s Has been on many medications Doing counseling at [facility] but not medication assistance Currently on Prozac 20 mg daily --> increase to 40 mg daily, script sent in Continue with Trazodone 100 mg nightly only In past has been on Venlafaxine, Bupropion, Abilify, Celexa, ALprazolam, Mirtazapine Recommend psychiatric assistance (used to see psychiatry at [facility] but no longer after provider commented about her obesity) --> referral to Psychiatry was also placed by sleep medicine provider when she established care on 03/04/2024 ( she has received paperwork to complete before she is seen which she is yet to do) Continue current management for now Assessment & Plan (02/15/2024 6:20 AM CDT): -chronic, not at goal -patient currently takes fluoxetine 20 mg -patient reports significant anxiety more so at night due to past trauma that occurred at night -patient does endorse some difficulty with sleeping which she states she does take her trazodone most nights -patient denies any thoughts of harming herself or others -BuSpar 10 mg nightly with option of BuSpar 5 mg twice a day prescribed -continue current treatment plan Assessment & Plan (01/19/2024 4:43 AM CDT): Chronic condition, not at goal, persisting issue Used to see psychiatry Reports past diagnosis of Bipolar disorder, and now borderline personality disorder, anxiety, depression Has been on many medications Doing counseling at [facility] but not medication assistance Currently on Prozac 20 mg daily, Trazodone 100 mg nightly only In past has been on Venlafaxine, Bupropion, Abilify, Celexa, ALprazolam, Mirtazapine Recommend psychiatric assistance (used to see psychiatry at [facility] but no longer after provider commented about her obesity) Continue current management for now Assessment & Plan (08/04/2023 11:33 AM MOLD YARD CRANE OPERATOR): Clinically improved, continue current prescription medications, fluoxetine, hydroxyzine. Assessment & Plan (02/20/2023 2:29 PM CDT): Worsening, will trial hydroxyzine, continue fluoxetine. Go to nearest emergency room should he will be a harm to herself or to others. Assessment & Plan (01/16/2023 11:11 AM CDT): Clinically improved, continue current prescription medications, fluoxetine. Assessment & Plan (10/19/2020 5:08 PM CDT): Pt's symptoms are uncontrolled today based on tearful affect and GAD7 score. She does not have SI and has a plan in place if she did develop these thoughts. I am concerned about her true adherence to her 3 drug regimen. As such, I emphasized the importance of adherence and monitoring of symptoms w/ a diary. I provided counselling and provided her w/ a list of nearby Psych and Counseling resources to establish long-term longditudinal care. - citalopram 40mg daily - bupropion 150mg daily - trazodone 100mg daily - encouraged regular day/night cycles Dysphagia 08/20/2020 Overview (07/12/2022): Previous dilatation done for mild stenosis Assessment & Plan (07/28/2023 4:38 PM MOLD YARD CRANE OPERATOR): 2/2 severe esophagitis, also has non-obstructing schazki ring and hiatal hernia Has been taking pantoprazole 40 mg twice a day but not consistent with taking before meals. Still feels like food getting caught sometimes if eating too fast. Plan Optimize PPI use, again counseled on the importance of taking pantoprazole 40 mg BID 30 minutes before breakfast and dinner dysphagia diet Repeat EGD as previously scheduled to check for esophagitis healing and dilation if needed after optimizing medical therapy Assessment & Plan (06/20/2023 9:22 PM MOLD YARD CRANE OPERATOR): For the past week with worsening heartburn and dysphagia. Was eating pot roast the other day and felt like it was stuck requiring vomiting, happened about 4 times over the weekend Patient has not been taking omeprazole consistently because makes her headache worse. Interval labs showed normal Cr, high A1C 8.2, COVID positive from 05/2023 Previous EGD from 09/2020 showed benign appearing esophageal stenosis that was dilated to 19 mm with TTS balloon, also noted to have small hiatal hernia that time. Plan Trial of pantoprazole 40 mg BID Soft dysphagia diet Schedule EGD Moderate episode of recurrent major depressive d isorder 07/09/2020 Overview (06/03/2021): Saw psych for one time visit on 08/26/20. Prescribed Bupropion 150 mg daily, Celexa 40 mg daily, and Trazodone 50-100 mg QHS - Avoid benzos, sedatives, anticholinergics - Recommend Interpersonal Psychotherapy:[facility] ([phone]) or [facility] ([phone]) - Psych recommendations for changes to consider after achieving compliance: 1. Bupropion could be increased (up to 450 mg daily) 2. SSRI --> SNRI (Venlafaxine, Duloxetine). Additional pain control benefit 3. Trazodone could be replaced with mirtazapine at 7.5 or 15 mg QHS to aid with sleep and depressive symptoms. Given Ms. Jurado's weight and metabolic symptoms I would be careful with this option as mirtazapine also increases appetite at these doses 4. Lastly, augmentation with Abilify (2.5 mg, increased up to 5 mg. Use caution given its risk for metabolic side effects Citalopram was switched to prozac. Started taking prozac Apr 2021. Tolerated without side effects. Mood is stable, doing well overall. -Increasing dose of prozac from 20mg to 40mg daily. Assessment & Plan (08/27/2024 2:58 PM CDT): Chronic condition, not at goal, persisting issue Used to see psychiatry Reports past diagnosis of Bipolar disorder, and now borderline personality disorder, anxiety, depression, PTSD Reports hx of eating disorder in the 1980s Doing counseling at [facility] but not medication assistance Currently on Prozac 40 mg daily 5/7 nighty, along with Trazodone 100 mg nightly only. She is also on Buspirone 10 mg BID with some inconsistency In past has been on Venlafaxine, Bupropion, Abilify, Celexa, ALprazolam, Mirtazapine Recommend psychiatric assistance (used to see psychiatry at [facility] but no longer after provider commented about her obesity that she did not like) --> referral to Psychiatry was also placed by sleep medicine provider when she established care on 03/04/2024 ( she has received paperwork to complete before she is seen which she is yet to do but is yet to do it still and submit it Continue current management for now but discussed better management is needed Assessment & Plan (04/16/2024 12:19 PM MOLD YARD CRANE OPERATOR): Chronic condition, not at goal, persisting issue Used to see psychiatry Reports past diagnosis of Bipolar disorder, and now borderline personality disorder, anxiety, depression, PTSD Reports hx of eating disorder in the 1980s Has been on many medications Doing counseling at [facility] but not medication assistance Currently on Prozac 20 mg daily --> increase to 40 mg daily, script sent in Continue with Trazodone 100 mg nightly only In past has been on Venlafaxine, Bupropion, Abilify, Celexa, ALprazolam, Mirtazapine Recommend psychiatric assistance (used to see psychiatry at [facility] but no longer after provider commented about her obesity) --> referral to Psychiatry was also placed by sleep medicine provider when she established care on 03/04/2024 ( she has received paperwork to complete before she is seen which she is yet to do) Continue current management for now Assessment & Plan (01/19/2024 4:43 AM CDT): Chronic condition, not at goal, persisting issue Used to see psychiatry Reports past diagnosis of Bipolar disorder, and now borderline personality disorder, anxiety, depression Has been on many medications Doing counseling at [facility] but not medication assistance Currently on Prozac 20 mg daily, Trazodone 100 mg nightly only In past has been on Venlafaxine, Bupropion, Abilify, Celexa, ALprazolam, Mirtazapine Recommend psychiatric assistance (used to see psychiatry at [facility] but no longer after provider commented about her obesity) Continue current management for now Assessment & Plan (08/04/2023 11:29 AM MOLD YARD CRANE OPERATOR): Stable. Cont. Current prescription medications, fluoxetine, mirtazapine. Assessment & Plan (02/20/2023 2:28 PM CDT): Stable. Cont. Current prescription medications, fluoxetine, trazodone. Assessment & Plan (01/16/2023 11:07 AM CDT): Patient reports that she is now being seen by Keiry Yadav. She feels better. Continue fluoxetine. Assessment & Plan (09/01/2022 2:35 PM CDT): Believe she did do okay with Prozac in the past in is okay with restarting Prozac. Will restart Prozac 20 mg once daily. Assessment & Plan (07/12/2022 5:34 PM MOLD YARD CRANE OPERATOR): Patient admits to being so depressed, but also states that she doesn't want to take all those drugs, because she does not like the way they make her feel. Referred to psychiatry for further eval/mgmt. Type 2 diabetes mellitus wit hout complication, without long-term current use of insulin 07/09/2020 Overview (04/16/2024): Following with Endocrinology Assessment & Plan (01/30/2024 4:27 PM CDT): This is a chronic condition which is at goal . Goal is less than 7%. Personally reviewed most recent A1c - Lab Results Component Value Date HGBA1C 6.3 01/18/2024 Personally reviewed POC blood sugar- at goal of 80-180 Lab Results Component Value Date POCGLU 131 01/30/2024 Medication- increase mounjaro 7.5mg weekly Monitor blood sugar 3 times weekly. Encouraged annual eye exam. last dilated eye exam was at her house by her insurance company Monofilament foot exam completed. Protective senses intact. Treated with Gabapentin eGFR- 98 Kidney function-normal Urine microalbumin/creatinine ratio - goal. Goal is <30 Continue amlodipine, hydrochlorothiazide, losartan Assessment & Plan (09/13/2023 8:38 AM CDT): This is a chronic condition which is inadequately controlled, worsening not at goal of less than 7%. Personally reviewed most recent A1c - Lab Results Component Value Date HGBA1C 8.4 09/13/2023 Personally reviewed POC blood sugar- at goal 80-180 Lab Results Component Value Date POCGLU 163 09/13/2023 Medication- stop januvia. Start mounjaro 2.5 mg weekly Monitor blood sugar daily. Encouraged annual eye exam. Monofilament foot exam completed. protective senses intact Treated with Gabapentin Personally reviewed CMP eGFR- 98 Kidney function- normal Urine microalbumin/creatinine ratio - at goal <30 treated with amlodipine, losartan, hydrochlorothiazide B/P today- at goal of <140/90. continue amlodipine, losartan, hydrochlorothiazide Personally reviewed lipid panel. Not at Goal of less than 70. Continue atorvastatin Assessment & Plan (08/04/2023 11:31 AM MOLD YARD CRANE OPERATOR): A1c near goal of< 8.0. Low carbs diet recommended. Keep nunu appt with Endocrinology, continue current meds, atorvastatin, losartan, Januvia. Assessment & Plan (06/16/2023 1:31 PM MOLD YARD CRANE OPERATOR): This is a chronic condition which is inadequately controlled, worsening not at goal of less than 7%. Personally reviewed most recent A1c - Lab Results Component Value Date HGBA1C 8.2 06/16/2023 Personally reviewed POC blood sugar- not at goal 80-180 Lab Results Component Value Date POCGLU 195 06/16/2023 Medication- Continue januvia 100mg po daily Encouraged to take medication consistently Encouraged to walk dogs more frequently to increase activity Monitor blood sugar daily Encouraged annual eye exam. Monofilament foot exam completed. protective senses intact Treated with gabapentin Personally reviewed CMP eGFR- 98 Kidney function- normal Urine microalbumin/creatinine ratio - at goal <30 treated with amlodipine, hydrochlorothiazide, losartan B/P today- not at goal of <140/90. continue amlodipine hydrochlorothiazide, losartan Personally reviewed lipid panel. Not at Goal of less than 70. Continue atorvastatin Assessment & Plan (02/20/2023 2:29 PM CDT): A1c at goal of less than 8.0, continue current prescription medications, atorvastatin, losartan, Januvia. Assessment & Plan (02/16/2023 3:37 PM CDT): This is a chronic condition which is close to goal of less than 7%. Personally reviewed most recent A1c - Lab Results Component Value Date HGBA1C 7.5 02/16/2023 Personally reviewed POC blood sugar- at goal 80-180 Lab Results Component Value Date POCGLU 178 02/16/2023 Medication- stop metformin, start januvia 100mg po daily Monitor blood sugar daily Encouraged annual eye exam. Monofilament foot exam completed. protective senses intact Treated with Gabapentin Personally reviewed CMP eGFR- 97 Kidney function- normal Urine microalbumin/creatinine ratio - at goal <30 treated with losartan, amlodipine, hydrochlorothiazide B/P today- at goal of <140/90. continue losartan, amlodipine, hydrochlorothiazide Personally reviewed lipid panel. Not at Goal of less than 70. Continue atorvastatin Assessment & Plan (06/16/2023 1:07 PM MOLD YARD CRANE OPERATOR): >>ASSESSMENT AND PLAN FOR TYPE 2 DIABETES MELLITUS WITH DIABETIC NEUROPATHY, WITHOUT LONG-TERM CURRENT USE OF INSULIN ([facility]) ([facility]) WRITTEN ON 01/16/2023 11:08 AM BY WENDI BRYANT, DO A1c at goal of less than 8.0, continue current prescription medications, atorvastatin, losartan, metformin XR. >>ASSESSMENT AND PLAN FOR DIABETIC POLYNEUROPATHY ASSOCIATED WITH TYPE 2 DIABETES MELLITUS ([facility]) ([facility]) WRITTEN ON 01/16/2023 11:11 AM BY WENDI BRYANT, DO Stable. Cont. Current prescription medications, gabapentin, amitriptyline. Assessment & Plan (09/10/2022 10:19 PM CDT): A1c at goal of less than 8.0, may continue metformin xr. Rx sent. Cont atorvastatin, losartan. Assessment & Plan (06/16/2023 1:07 PM MOLD YARD CRANE OPERATOR): >>ASSESSMENT AND PLAN FOR TYPE 2 DIABETES MELLITUS WITH DIABETIC NEUROPATHY, WITHOUT LONG-TERM CURRENT USE OF INSULIN ([facility]) ([facility]) WRITTEN ON 07/12/2022 5:33 PM BY WENDI BRYANT, DO A1c at goal of less than 8.0. Trial of glimepiride. Low carbs diet recommended. >>ASSESSMENT AND PLAN FOR DIABETIC POLYNEUROPATHY ASSOCIATED WITH TYPE 2 DIABETES MELLITUS ([facility]) ([facility]) WRITTEN ON 07/12/2022 5:27 PM BY WENDI BRYANT, DO Stable. Cont. Current prescription medications. Assessment & Plan (10/19/2020 5:04 PM CDT): Adequate control based on A1C 6.2% despite non-adherence to metformin. Will not make changes to regimen. Acquired hypothyroidism 07/09/2020 Assessment & Plan (04/16/2024 12:18 PM MOLD YARD CRANE OPERATOR): This is a chronic condition which is at goal of TSH between 0.3 to 4.2 mclUnits/ml Reviewed lab. Lab Results Component Value Date TSH 2.13 01/30/2024 TSH 1.16 07/25/2023 TSH 2.51 02/21/2023 Continue Levothryoxine 75 mcg po daily in am Discussed the importance of taking Levothryoxine on a empty stomach, which means one hour before eating or two hours after eating. Discussed food in the stomach will interfere with absorption of Levothyroxine. Discussed Calcium, antacids and iron supplements will interfere with the absorption of Levothyroxine, encouraged to take these at a different time of the day. Assessment & Plan (01/19/2024 4:45 AM CDT): This is a chronic condition which is at goal of TSH between 0.3 to 4.2 mclUnits/ml Reviewed lab. Lab Results Component Value Date TSH 1.16 07/25/2023 TSH 2.51 02/21/2023 TSH 2.32 07/12/2022 Continue Levothryoxine 75 mcg po daily in am Discussed the importance of taking Levothryoxine on a empty stomach, which means one hour before eating or two hours after eating. Discussed food in the stomach will interfere with absorption of Levothyroxine. Discussed Calcium, antacids and iron supplements will interfere with the absorption of Levothyroxine, encouraged to take these at a different time of the day. Assessment & Plan (09/13/2023 8:08 AM CDT): This is a chronic condition which is at goal of TSH between 0.3 to 4.2 mclUnits/ml Personally reviewed lab. Lab Results Component Value Date TSH 1.16 07/25/2023 TSH 2.51 02/21/2023 TSH 2.32 07/12/2022 Continue Levothryoxine 75 mcg po daily in am Discussed the importance of taking Levothryoxine on a empty stomach, which means one hour before eating or two hours after eating. Discussed food in the stomach will interfere with absorption of Levothyroxine. Discussed Calcium, antacids and iron supplements will interfere with the absorption of Levothyroxine, encouraged to take these at a different time of the day. Assessment & Plan (08/04/2023 11:31 AM MOLD YARD CRANE OPERATOR): Asymptomatic. Stable. Continue current prescription medications, levothyroxine. Assessment & Plan (01/16/2023 11:08 AM CDT): Asymptomatic. Stable. Continue current prescription medications, levothyroxine. Assessment & Plan (07/12/2022 5:31 PM MOLD YARD CRANE OPERATOR): Labs ordered, will follow. Cont current Rx meds. Hyperlipidemia associated with type 2 diabetes debby grover 07/09/2020 Assessment & Plan (04/16/2024 12:18 PM MOLD YARD CRANE OPERATOR): - chronic condition - status: is not adequately controlled. - current management/medications: Atorvastatin 40 mg nightly --> Due for refill - other comorbid conditions:DM2, hypertension - patient is not compliant with medications. (States when she gets depressed she does not care about her medications but she is trying) - most recent LDL as shown below - maintain a healthy weight, diet - will monitor closely - continue current management Lab Results Component Value Date LDLCALC 127 01/30/2024 Lab Results Component Value Date ALT 21 03/26/2024 AST 25 03/26/2024 ALKPHOS 90 03/26/2024 BILITOT 0.7 03/26/2024 Assessment & Plan (01/30/2024 4:28 PM CDT): This is a chronic condition which is not at goal . Goal is LDL less than 70 Continue atorvastatin Encouraged to eat healthy, include fresh fruits and vegetables daily and avoid eating fried foods more than once per week. Assessment & Plan (01/18/2024 3:58 PM CDT): - chronic condition - status: is not adequately controlled. - current management/medications: Atorvastatin 40 mg nightly - other comorbid conditions:DM2, hypertension - patient is not compliant with medications. (States when she gets depressed she does not care about her medications but she is trying) - most recent LDL as shown below - maintain a healthy weight, diet - will monitor closely - continue current management Lab Results Component Value Date LDLCALC 133 (H) 07/25/2023 Lab Results Component Value Date ALT 24 07/25/2023 AST 34 07/25/2023 ALKPHOS 119 07/25/2023 BILITOT 0.3 07/25/2023 Assessment & Plan (09/13/2023 8:09 AM CDT): This is a chronic condition which is not at goal of LDL less than 70 Continue atorvastatin Encouraged to eat healthy, include fresh fruits and vegetables daily and avoid eating fried foods more than once per week. Encouraged to take medications as prescribed. Assessment & Plan (08/04/2023 11:32 AM MOLD YARD CRANE OPERATOR): LDL near goal of < 100, continue atorvastatin. Low chol diet recommended. Assessment & Plan (06/16/2023 1:32 PM MOLD YARD CRANE OPERATOR): This is a chronic condition which is not at goal of LDL less than 70 Continue atorvastatin Encouraged to eat healthy, include fresh fruits and vegetables daily and avoid eating fried foods more than once per week. Encouraged to take medications as prescribed. Assessment & Plan (02/16/2023 3:38 PM CDT): This is a chronic condition which is not at goal of LDL less than 70 Continue atorvastatin Encouraged to eat healthy, include fresh fruits and vegetables daily and avoid eating fried foods more than once per week. Encouraged to take medications as prescribed. Assessment & Plan (01/16/2023 11:08 AM CDT): LDL above goal of less than 100, low-cholesterol diet recommended. Continue atorvastatin. Assessment & Plan (07/12/2022 5:31 PM MOLD YARD CRANE OPERATOR): LDL not at goal of < 100, low chol diet recommended. Encouraged compliance with medications. Fibromyalgia 07/09/2020 Overview (07/09/2020): Has pain throughout body, also w/depression and insomnia. Not currently on any meds for pain. Wants to use marijuana. - Encouraged exercise - Tx of depression discussed elsewhere - Currently takes trazodone for sleep Hypertension associated with diabetes 07/09/2020 Assessment & Plan (08/27/2024 2:54 PM CDT): Blood Pressure Management BP Readings from Last 3 Encounters: 08/27/24 150/80 08/01/24 136/70 07/11/24 140/75 Chronic condition Status - is suboptimally controlled.--> reports she missed her medications a lot and has not taken her medications today Current medications are: currently on Losartan-HCTZ 100-12.5 mg daily, and amlodipine 10 mg nightly Patient is not compliant with medications. (States when she is depressed she does not care about anything) --> again recommend seeking psychiatric assistance Patient denies any side effects or adverse side effects from the medication/s. Follow a low salt diet Monitor blood pressure regularly at home Recommend better compliance of medications The 10-year ASCVD risk score (Kerwin DK, et al., 2019) is: 22.8% Values used to calculate the score: Age: 69 years Sex: Female Is Non- : No Diabetic: Yes Tobacco smoker: No Systolic Blood Pressure: 150 mmHg Is BP treated: Yes HDL Cholesterol: 52 mg/dL Total Cholesterol: 195 mg/dL Lab Results Component Value Date LDLCALC 127 01/30/2024 Lab Results Component Value Date GLUCOSE 109 07/11/2024 CALCIUM 9.9 04/04/2024 SODIUM 139 04/04/2024 POTASSIUM 3.2 (L) 04/04/2024 CO2 22 04/04/2024 CHLORIDE 101 04/04/2024 BUNSER 6 04/04/2024 CREATININE 0.71 04/04/2024 Assessment & Plan (04/16/2024 12:09 PM MOLD YARD CRANE OPERATOR): Blood Pressure Management BP Readings from Last 3 Encounters: 04/16/24 140/86 04/09/24 149/90 04/08/24 144/81 Chronic condition Status - is suboptimally controlled. Current medications are: losartan 25 mg BID mg daily, hydrochlorothiazide 25 mg daily, Amlodipine 10 mg nightly --> change to Losartan-HCTZ 100-12.5 mg daily, script sent in, continue with amlodipine 10 mg nightly Patient is not compliant with medications. (States when she is depressed she does not care about anything) Patient denies any side effects or adverse side effects from the medication/s. Follow a low salt diet Monitor blood pressure regularly at home Continue current management unless change made above The 10-year ASCVD risk score (Kerwin DK, et al., 2019) is: 18.3% Values used to calculate the score: Age: 68 years Sex: Female Is Non- : No Diabetic: Yes Tobacco smoker: No Systolic Blood Pressure: 140 mmHg Is BP treated: Yes HDL Cholesterol: 52 mg/dL Total Cholesterol: 195 mg/dL Lab Results Component Value Date LDLCALC 127 01/30/2024 Lab Results Component Value Date GLUCOSE 131 04/04/2024 CALCIUM 9.9 04/04/2024 SODIUM 139 04/04/2024 POTASSIUM 3.2 (L) 04/04/2024 CO2 22 04/04/2024 CHLORIDE 101 04/04/2024 BUNSER 6 04/04/2024 CREATININE 0.71 04/04/2024 Assessment & Plan (02/15/2024 6:25 AM CDT): BP Readings from Last 3 Encounters: 02/14/24 128/82 02/13/24 144/80 02/13/24 169/83 -chronic, suboptimally controlled -currently taking hydrochlorothiazide 25 mg, amlodipine 10 mg, losartan 50 mg -patient denies checking blood pressure regularly at home and states she has not been taking her medication regularly, but after her recent ER visit she plans to be more vigilant with her medication regimen -patient reports her blood pressure is typically worse at night and patient reports significant anxiety at night compared to daytime -encourage patient to continue low-sodium diet -blood pressure log provided, instructed patient to check blood pressure twice a day -losartan 25 mg b.I.d. prescribed -follow up in 1 month -continue current treatment plan Assessment & Plan (01/30/2024 4:28 PM CDT): This is a chronic condition which was not at goal upon arrival. At goal after rest. Goal is less than 140/90 Continue amlodipine, losartan, HCTZ Encouraged to monitor weight and B/P at home. Encouraged to void caffeine and excessive alcohol consumption as this will elevate B/P Assessment & Plan (01/19/2024 4:57 AM CDT): Blood Pressure Management BP Readings from Last 3 Encounters: 01/18/24 150/88 01/04/24 160/92 12/25/23 147/82 Chronic condition Status - is not adequately controlled. Current medications are: losartan 50 mg daily, Amlodipine 10 mg nightly Patient is not compliant with medications. (States when she is depressed she does not care about anything) --> restart taking blood pressure medications on a consistent basis for better control Patient denies any side effects or adverse side effects from the medication/s. Follow a low salt diet Monitor blood pressure regularly at home Continue current management unless change made above The 10-year ASCVD risk score (Kerwin DK, et al., 2019) is: 21.2% Values used to calculate the score: Age: 68 years Sex: Female Is Non- : No Diabetic: Yes Tobacco smoker: No Systolic Blood Pressure: 150 mmHg Is BP treated: Yes HDL Cholesterol: 50 mg/dL Total Cholesterol: 199 mg/dL Lab Results Component Value Date LDLCALC 133 (H) 07/25/2023 Lab Results Component Value Date GLUCOSE 127 (H) 12/25/2023 CALCIUM 9.9 07/25/2023 SODIUM 134 (L) 07/25/2023 POTASSIUM 4.3 07/25/2023 CO2 24 07/25/2023 CHLORIDE 95 (L) 07/25/2023 BUNSER 15 07/25/2023 CREATININE 0.62 07/25/2023 Assessment & Plan (09/13/2023 8:38 AM CDT): This is a chronic condition which is at goal of less than 140/90 Personally reviewed labs. Continue amlodipine, losartan, hydrochlorothiazide Encouraged to monitor weight and B/P at home Encouraged to take medications as prescribed. Assessment & Plan (08/04/2023 11:32 AM MOLD YARD CRANE OPERATOR): Blood pressure at goal less than 140/90, continue current prescription medications, amlodipine, HCTZ, losartan. Assessment & Plan (06/16/2023 1:32 PM MOLD YARD CRANE OPERATOR): This is a chronic condition which is not at goal of less than 140/90 Personally reviewed labs. Continue losartan, amlodipine, hydrochlorothiazide Encouraged to monitor weight and B/P at home Encouraged to take medications as prescribed. Assessment & Plan (02/16/2023 3:38 PM CDT): This is a chronic condition which is at goal of less than 140/90 Personally reviewed labs. Continue amlodipine, losartan, hydrochlorothiazide Encouraged to monitor weight and B/P at home Encouraged to take medications as prescribed. Assessment & Plan (01/16/2023 11:10 AM CDT): Blood pressure is at goal of less than 140/90, continue current prescription medications, amlodipine, hydrochlorothiazide, losartan. Assessment & Plan (07/12/2022 5:30 PM MOLD YARD CRANE OPERATOR): BP slightly above goal o f< 140/90, encouraged compliance. Assessment & Plan (10/19/2020 5:03 PM CDT): Uncontrolled today, likely from med non-compliance. - stop atenolol 50mg daily - start coreg 12.5mg BID - ctn HCTZ 25mg daily - ctn losartan 100mg daily - emphasized the need for home BP monitoring and daily med adherence. 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 She agreed she wouldn't want to take any increased risk. - We will reassess nausea at future visit after she starts Prilosec - Instructed pt to call if her dysphagia worsens. There was some misunderstanding at her scope time and she now endorses always having some dysphagia, though only rare vomiting and no weight loss. If after being on the PPI, this isn't improved, will refer her to GI or another endoscopy to have a dilation of her stenosis Assessment & Plan (02/14/2024 12:29 PM CDT): We have discussed the risks of the weight with regard to recurrence. Her pH and manometry have been completed. We are going to give her a 2 week preoperative clear liquid diet to help shrink down the size of her liver in preparation for surgery. We have also discussed a four-week diet afterwards to limit other complications with surgery. We have discussed this will require a 1 night stay in the hospital. We have discussed postoperative restrictions as well. She was in understanding of the plan. Assessment & Plan (01/04/2024 12:16 PM CDT): Given the patient's morbid obesity we have brought up a gastric bypass which would address both the hiatal hernia as well as the reflux symptoms. She had not initially contemplated this so needs to think about it. In preparation I will send her for CT scan of the chest as well as pH and manometry testing. If she decides against the bypass I would like to see her BMI under 35 prior to proceeding. She was already in the process of trying to lose weight and has lost about 15 lb. We have discussed the risks of recurrence given the obesity. She is in understanding. Once these test results return she will call us and let us know which way she would like to proceed. Assessment & Plan (08/04/2023 11:33 AM MOLD YARD CRANE OPERATOR): Asymptomatic. Stable. Continue current prescription medications, Pantoprazole. Followed by GI. Assessment & Plan (07/28/2023 4:35 PM MOLD YARD CRANE OPERATOR): Since last visit had EGD 06/28/2023 that showed Grade D reflux esophagus, non-obstructing Schatzki ring and 2 cm hiatal hernia EGD 2020 showed benign stenosis dilated to 19 mm with TTS also noted to have small HH that time Has been taking pantoprazole 40 mg twice a day but not consistent with taking before meals. Still feels like food getting caught sometimes if eating too fast. Heartburn a little better. Feels overall very stressed out about paying for all her medical bills. Plan Continue pantoprazole 40 mg BID, take 30 minutes before breakfast and dinner If still having issues then add famotidine 20 mg at bedtime Repeat EGD as previously scheduled to check for esophagitis healing and dilation if still having dysphagia after optimizing medical reflux therapy Continue to follow antirefllux lifestyle Assessment & Plan (04/22/2023 6:35 PM MOLD YARD CRANE OPERATOR): Heartburn not currently controlled, not on any meds right now. EGD 2020 showed benign stenosis dilated to 19 mm with TTS also noted to have small HH that time. Will start omeprazole 40 mg daily and counseled on antireflux lifestyle modifications Assessment & Plan (07/12/2022 5:29 PM MOLD YARD CRANE OPERATOR): Symptomatic, encouraged compliance with medications, did not improve on omeprazole, will try famotidine. Referred to GI. Resolved Problems Problem Noted Date Diagnosed Date Resolved Date Hiatal hernia 01/19/2024 05/07/2024 Assessment & Plan (03/12/2024 4:56 PM CDT): -chronic, not at goal -patient reports longstanding history of a hiatal hernia and difficulties with acid reflux -currently takes omeprazole 40 mg b.i.d. -patient follows with GI and General surgery -patient reports she has plans to have an upcoming hiatal hernia repair on 04/03 -preop evaluation completed; awaiting results to virgen Medical clearance -encouraged patient to continue current treatment plan the specialist Assessment & Plan (01/19/2024 4:57 AM CDT): - chronic condition, not adequately controlled - patient with known hiatal hernia with longstanding symptoms of acid reflux and regurgitation that is not adequately controlled with medication - has been following up with Gastroenterology and recently was referred to General surgery was evaluated - she now has CT of the chest as well as pH manometry testing as part of the surgical evaluation, however she was also discussed that she may consider gastric bypass surgery which may resolve her obesity as well as her hiatal hernia based on documentation reviewed Prediabetes 01/18/2024 01/18/2024 Acute pain of right knee 06/26/202301/2024 Assessment & Plan (08/04/2023 11:34 AM MOLD YARD CRANE OPERATOR): Ibuprofen prn pain, referred to Ortho. Assessment & Plan (06/26/2023 9:32 PM MOLD YARD CRANE OPERATOR): Xrays ordered, ibuprofen for pain. Will follow. History of COVID-19 05/23/2023 01/18/20 Assessment & Plan (05/23/2023 9:51 PM MOLD YARD CRANE OPERATOR): Rx given, increase fluid intake. Rest. Go to nearest ER if S/Sxs worsen. Overactive bladder 04/05/2023 Screening for colon cancer 07/12/2022 0 01/16/2023 Overview (07/12/2022): Added automatically from request for surgery [id number] Pruritus 06/03/2021 01/18/2024 Overview (06/03/2021): Itching in ears bilaterally for past two months. Associate nasal congestion and evening cough. Suspect that this is due to seasonal allergies or dried skin from cold weather. Exam only s/f cerumen. -Trial Zyrtec for antihistamine relief of pruritis and allergies -Debrox for 3 days Seborrheic dermatitis of scalp 07/09/2020 01/19/2024 Overview (08/27/2020): Pt has been itching area on back of scalp which is now red and inflamed. Gave Rx for ketoconazole shampoo last visit but she says this dried her hair out too much and she is requesting a cream instead -Trial of ketoconazole 2% cream to use on the worst of her rash on the base of her head Other chest pain 07/12/2022 Assessment & Plan (10/19/2020 5:01 PM CDT): Pt had extensive workup for her chest pain, nausea, diaphoresis that included hsTpn, EKG, NM Lexiscan stress test, CXR -- these were unrevealing. Suspect that pt has anxiety with possible panic attacks. Today, I went over the pt's [facility] 10/11-10/12 test results and provided reassuring. Psych management as above. Diverticulosis 01/18/2024 Immunizations Immunization Administration Dates Next Due Influenza, Quadrivalent, Spl it, Preservative Free, Intramuscular 04/26/2021(Deferred: Patient Refused) Influenza, Unspecified 04/16/2024(Deferr ed: Patient Refused),04/16/2024(Deferred: Patient Refused),04/08/2024(Deferred: Patient Refused),03/12/2024(Deferred: Patient Refused),06/22/2023(Deferred: Patient Refused),01/10/2023(Deferred: Patient Refused),09/29/2022(Deferred: Patient Refused),07/12/2022(Deferred: Patient Refused),06/22/2022(Deferred: Patient Refused),01/10/2022(Deferred: Patient Refused) Pneumococcal Conjugate Pcv20 01/16/2023 Pneumococcal, Unspecified 08/29/2022(Deferred: P atient Refused) Tdap 04/26/2021 Social History Tobacco Use Types Packs/Day Years Used Date Smoking Tobacco: Never Smokeless Tobacco: Never Tobacco Cessation:Counseling Given: Yes [facility] Utilities Answer Date Recorded In the past 12 months has [employer], gas, oil, or water [employer] threatened to shut off services in your home? No 03/06/2024 Social Connection and Isolation Panel [NHANES] A nswer Date Recorded In a typical week, how many times do you talk on the phone with family, friends, or neighbors? Three times a week 03/06/2024 How often do you get togethe r with friends or relatives? Twice a week 03/06/2024 How often do you attend chur ch or scientologist services? Never 03/06/2024 Do you belong to any clubs o r organizations such as anabaptist groups, unions, fraternal or athletic groups, or school groups? No 03/06/2024 How often do you attend meet ings of the clubs or organizations you belong to? Never 03/06/2024 Are you , , di vorced, , never , or living with a partner? 03/06/2024 AUDIT-C Answer Date Recorded Q1: How often do you have a drink containing alc ohol? 2-3 times a week 08/27/2024 Q2: How many drinks containi ng alcohol do you have on a typical day when you are drinking? 3 or 4 08/27/2024 Q3: How often do you have si x or more drinks on one occasion? Never 08/27/2024 Overall Financial Resource Strain (CARDIA) Answe r Date Recorded How hard is it for you to pa y for the very basics like food, housing, medical care, and heating? Somewhat hard 03/06/2024 PHQ-2 Answer Date Recorded PHQ-2 Total Score (If total score is 3 or more points, staff should administer the PHQ-9) 2 08/27/2024 Hunger Vital Sign Answer Date Recorded Within the past 12 months, y ou worried that your food would run out before you got the money to buy more. Never true 03/06/20 24 Within the past 12 months, t he food you bought just didn't last and you didn't have money to get more. Never true 03/06/2024 PRAPARE - Transportation Answer Date Re corded In the past 12 months, has l ack of transportation kept you from medical appointments or from getting medications? No 02/11 In the past 12 months, has l ack of transportation kept you from meetings, work, or from getting things needed for daily living? No 03/06/2024 PHQ-9 Answer Date Recorded Patient Health Questionnaire-9 Score 23 04/03/2024 Housing Stability Vital Sign Answer Kevin e Recorded In the last 12 months, was t here a time when you were not able to pay the mortgage or rent on time? No 03/06/2024 In the past 12 months, how m any times have you moved where you were living? 0 03/06/2024 At any time in the past 12 m [facility], were you homeless or living in a residential (including now)? No 03/06/2024 Personal Safety Answer Date Recorded Have you ever been in or are you currently in a harmful physical or emotional relationship or is someone making you feel afraid or unsafe? Denies 07/11/2024 Comments No Sex and Gender Information Value Date Recorded Sex Assigned at Not on file Legal Sex Female 4:31 PM MOLD YARD CRANE OPERATOR Gender Identity Not on file Sexual Orientation Not on file Last Filed Vital Signs Vital Sign Reading Time Taken Comments Blood Pressure 146/85 09/03/2024 2:08 PM CDT Pulse 85 09/03/2024 2:08 PM CDT Temperature 36.9 C (98.4 F) 08/27/2024 2:19 PM CDT Respiratory Rate 18 09/03/2024 2:08 PM CDT Oxygen Saturation 97% 09/03/2024 2:08 PM CDT Inhaled Oxygen Concentration - - Weight 82.5 kg (181 lb 12.8 oz) 09/03/2024 2:08 PM CDT Height 157.5 cm (5' 2 ) 09/03/2024 2:08 PM CDT Body Mass Index 33.25 09/03/2024 2:08 PM CDT Plan of Treatment Not on file Medical Devices Implanted Type Area Account Manager [employer] Device Identifier Shelf Expiration Date Model / Serial / Lot [employer] Kit Lead Neurostimulator Urinary Control Sacral Test Interstim [id number] - [id number] Implanted:Qty: 1 on 03/28/2023 by Angela Rand MD at [facility] N/A: Sacrum [employer] 01/27/2024 [id number] / / [id number] [employer] Lead Neurostimulator Urinary Control Sacral Test Interstim [id number] - [id number] Implanted:Qty: 1 on 03/28/2023 by Angela Rand MD at [facility] N/A: Sacrum [employer] 05/23/2024 [id number] / / [id number] [employer] Kit Lead Neurostimulator Percutaneous 4.32mm Spacing Interstim Surescan 28cm [id number] - [id number] Implanted:Qty: 1 on 05/02/2023 by Angela Rand MD at [facility] N/A: Sacrum [employer] 03/01/2024 [id number] / / [id number] [employer] Generator Neurostimulator Bowel Bladder Recharge Free Interstim X [id number] - [id number] - [id number] Implanted:Qty: 1 on 05/02/2023 by Angela Rand MD at [facility] N/A: Buttocks Med[employer] Inc 09/06/2024 [id number] / [id number] / Med[employer]onic [employer] Envelope Absrb 2.7x2.5in Antibacterial Tyrx Medium Strl [id number] - [id number] Implanted:Qty: 1 on 05/02/2023 by Angela Rand MD at [facility] N/A: Buttocks [employer] [id number] 02/10/2024 [id number] / / [id number] Procedures Procedure Name Priority Date/Time Associated Diagnosis Comments POCT HEMOGLOBIN A1C Routine 08/01/2024 3:15 PM MOLD YARD CRANE OPERATOR Type 2 diabetes mellitus without complication, without long-term current use of insulin (HCC) POCT GLUCOSE Routine 08/01/2024 3:12 PM MOLD YARD CRANE OPERATOR Type 2 diabetes mellitus without complication, without long-term current use of insulin (HCC) ESOPHAGOGASTRODUODENOSCOPY 07/11 11:16 AM MOLD YARD CRANE OPERATOR History of gastric polyp Esophagitis POCT GLUCOSE DEVICE Routine 07/11/2024 11:13 AM MOLD YARD CRANE OPERATOR EGD 07/11/2024 10:52 AM MOLD YARD CRANE OPERATOR EGFR Routine 04/04/2024 3:47 AM CDT ALBUMIN CREATININE RATIO, URINE Routine 01/30/2024 3:37 PM CDT Type 2 diabetes mellitus with hyperglycemia, without long-term current use of insulin (HCC) LIPID PANEL Routine 01/30/2024 2:08 PM CDT Type 2 diabetes mellitus with hyperglycemia, without long-term current use of insulin (HCC) Hyperlipidemia associated with type 2 diabetes mellitus (HCC) SCREENING MAMMOGRAM BILATERA L W JIMBO Schedule Routine, Read Routine (OP Routine) 01/22/2024 8:44 AM CDT Screening mammogram, encounter for DIABETIC EYE EXAM Routine 04/14/2023 DEXA AXIAL SKELETON BONE DENSITY 1 OR MORE SITES Schedule Routine, Read Routine (OP Routine) 01/23/2023 2:53 PM CDT Screening for osteoporosis Postmenopausal COLONOSCOPY 10/05/2022 9:08 AM CDT HEPATITIS C ANTIBODY Routine 01/22/2021 5:22 PM CDT Encounter for HCV screening test for low risk patient from Last 3 Months or Most Recently Relevant to Health Maintenance Results * POCT hemoglobin A1c (08/01/2024 3:15 PM MOLD YARD CRANE OPERATOR) Hemoglobin A1C, POC 5.7 4.0 - 5.6 % Blood 08/01/2024 3:15 PM MOLD YARD CRANE OPERATOR us Rut Patel NP POINT OF CARE TEST ORDERABLES F inal Result * POCT glucose (08/01/2024 3:12 PM MOLD YARD CRANE OPERATOR) Glucose Blood, POC 151 mg/dL Blood 08/01/2024 3:12 PM MOLD YARD CRANE OPERATOR us Rut Patel NP POINT OF CARE TEST ORDERABLES F inal Result * POCT glucose (07/11/2024 11:13 AM MOLD YARD CRANE OPERATOR) Glucose, POC 109 70 - 199 mg/dL Blood 07/11/2024 11:1 3 AM MOLD YARD CRANE OPERATOR 07/11/2024 11:13 AM MOLD YARD CRANE OPERATOR us Rodrick Booker MD LAB POCT ORDERABLES - DEVICE Fin al Result RAD[facility] [address] Department [place] [address] * EGD (07/11/2024 10:52 AM MOLD YARD CRANE OPERATOR) Anatomical Region Laterality Modality Other Narrative Procedure Note Rodrick Booker MD - 07/11/2024 10:[address] [facility] Patient Name: Latesha Jurado Procedure Date: 07/11/2024 10:52 AM Date of : 1955 Admit Type: Outpatient Age: 68 Gender: Female Attending MD: Rodrick Booker M.D. Room: [facility] END[facility]COPY ROOM 2 Note Status: Finalized Patient Profile: This is a 68 year old female hx of HLD, HTN, DM, hypothyroidism, morbid obesity, GERD with peptic stricture s/p dilation, esophagitis, recurrent diverticulitis, anxiety and depression here for EGDto evaluate for esophagitis healing and persistent reflux, dysphagia, n/v. Last EGD from 12/2023showed grade C reflux esophagitis and 3 cm hiatal hernia. There was also a nonobstructing Schatzki ring thatwas dilated to 19 mm. She has since then undergoneNissen fundoplication 03/2024. Normal barium esophagram 05/2024. Currently doing well with her reflux and dysphagia, taking omeprazole 40 mg once daily. Does have some nausea that she thinks is related totaking Mounjaro. Procedure: Upper GI endoscopy Indications: Follow-up of esophagitis Referring MD: Jad Gonsales M.D. Providers: Rodrick Booker M.D. Impression: - Normal esophagus. - A large amount of food (residue) in the stomach concerning for gastroparesis with Mounjaro use. - No specimens collected. Recommendation: - Patient has a contact number available for emergencies. The signs and symptoms of potential delayed complications were discussed with thepatient. Return to normal activities tomorrow. Written discharge instructions were provided to thepatient. - Discharge patient to home (with escort). - Continue Prilosec (omeprazole) 40 mg PO daily. - Patient does not wish to be taken off ofMounjaro, we will do a 3 months trial of Reglan 10mg TIDbefore meals - Low residue, low fat, small frequent meals - Follow up in GI clinic in a month. Medicines: Monitored Anesthesia Care Complications: No immediate complications. Estimated Blood Loss: Estimated blood loss: none. Procedure: Pre-Anesthesia Assessment: - Prior to the procedure, a History and Physicalwas performed, and patient medications and allergieswere reviewed. The patient is competent. The risks and benefits of the procedure and the sedation optionsand risks were discussed with the patient. Allquestions were answered and informed consent was obtained. Patient identification and proposed procedure were verified by the physician, the behavior analyst and the mechanical design technician in the endoscopy suite. Mental Status Examination: normal. Prophylactic Antibiotics: The patient does not require prophylactic antibiotics. Prior Anticoagulants: The patient has taken no anticoagulant or antiplatelet agents. Afterreviewing the risks and benefits, the patient was deemed in satisfactory condition to undergo the procedure.The anesthesia plan was to use monitored anesthesiacare (MAC). Immediately prior to administration of medications, the patient was re-assessed foradequacy to receive sedatives. The heart rate, respiratory rate, oxygen saturations, blood pressure, adequacyof pulmonary ventilation, and response to care were monitored throughout the procedure. The physical status of the patient was re-assessed after the procedure. The benefits, risks, and alternatives to theprocedure and sedation were discussed and informed consentwas obtained. The scope was passed under direct vision. The Endoscope [id number] was introduced through the mouth, and advanced to the prepyloric region, stomach. The upper GI endoscopy was accomplished without difficulty. The patienttolerated the procedure well. Findings: The examined esophagus was normal. A large amount of food (residue) was found in the gastric body with a small amount found in the gastric antrum. Rodrick Booker M.D. 07/11/2024 2:04:20 PM Number of Addenda: 0 Note Initiated On: 07/11/2024 10:52 AM Procedure Code(s): --- Professional --- 78574, 52, Esophagogastroduodenoscopy, flexible, transoral;diagnostic, including collection of specimen(s) by brushing or washing, when performed (separate procedure) --- Technical --- 77001, 52, Esophagogastroduodenoscopy, flexible, transoral;diagnostic, including collection of specimen(s) by brushing or washing, when performed (separate procedure) Diagnosis Code(s): --- Professional --- K20.90, Esophagitis, unspecified without bleeding --- Technical --- K20.90, Esophagitis, unspecified without bleeding CPT copyright 2020 [employer]. All rights reserved. The codes documented in this report are preliminary and upon soils engineer reviewmay be revised to meet current compliance requirements. Recognized by the [employer] for promoting quality in endoscopy us Rodrick Booker MD ENDOSCOPY PROCEDURES Final Resul t * eGFR (04/04/2024 3:47 AM CDT) eGFR >90 >=60 mL/min/1. 73 m2 Comment: Interpretive Data Reference Interval Normal >/= 90 mL/min/1.73m2 Mildly decreased* 60 - 89 mL/min/1.73m2 Mildly to moderately decreased 45 - 59 mL/min/1.73m2 Moderately to severely decreased 30 - 44 mL/min/1.73m2 Severely decreased 15 - 29 mL/min/1.73m2 Kidney Failure < 15 mL/min/1.73m2 *Relative to young adult level Estimated glomerular filtration rate is determined by the 2020 CKD-EPI equation recommended by the National Kidney Foundation (A Unifying Approach to GFR Estimation: Recommendations of the NKF-ASK Task Force on Reassessing the Inclusion of Race in Diagnosing Kidney Disease, JASN 2020). The CKD-EPI equation should not be used for patients with unstable renal function and has not been validated in children and those over 70. Current interpretive data was last reviewed 2021. Blood 04/04/2024 3:47 AM CDT 04/04/2024 4:18 AM CDT us Koko Demarco MD LAB BLOOD ORDERA BLES Final Result Performing Organization Address City/[facility]/ZIP Co de Phone Number RADHA [facility] Department [place] [address] * Albumin Creatinine Ratio, Urine (01/30/2024 3:37 PM CDT) Albumin Ur <12.0 mg/L Comment: Interpretive Data No reference range established. Current interpretive data was last revised 2018. Creatinine Ur 68.2 mg/dL RADHA Comment: Interpretive Data No reference range established. Current interpretive data was last revised 2018. Albumin Creatinine Ratio, Ur <18 1 - 29 mg/g RADHA CASTILLO Urine 01/30/2024 3:37 PM CDT 01/30/2024 8:23 PM CDT us Rut Patel NP LAB URINE ORDERABLES Final Resu lt RADHA [id number] [place] [address] * Lipid panel (01/30/2024 2:08 PM CDT) Cholesterol 195 30 - 199 mg/dL Comment: Interpretive Data Ages < or = 19 years Acceptable: <170 mg/dL Borderline high: 170-199 mg/dL High: >or= 200 mg/dL Ages > or = 20 years Desirable: <200 mg/dL Borderline high: 200-239 mg/dL High: >or= 240 mg/dL Literature References: 1. Expert Panel on Integrated Guidelines for Cardiovascular Health and Risk Reduction in Children and Adolescents. Pediatrics 2011;128:S213 2. NCEP Expert Panel. Circulation 2004;110:227 Current Interpretive Data was last revised on 2018. Triglycerides 81 <=149 mg/dL RADHA REYNOLDS (SAMREEN) Comment: Interpretive Data Ages < or = 9 years Acceptable: <75 mg/dL Borderline high: 75-99 mg/dL High: >or= 100 mg/dL Ages 10 to 20 years Acceptable: <90 mg/dL Borderline high: 90-129 mg/dL High: >or= 130 mg/dL Ages > or = 20 years Desirable: <150 mg/dL Borderline high: 150-199 mg/dL High: 200-499 mg/dL Very high: >or= 499 mg/dL Literature References: 1. Expert Panel on Integrated Guidelines for Cardiovascular Health and Risk Reduction in Children and Adolescents. Pediatrics 2011;128:S213 2. NCEP Expert Panel. Circulation 2004;110:227 Current Interpretive Data was last revised on 2018. HDL 52 >=40 mg/dL RADHA Casper (SAMREEN) Comment: Interpretive Data Ages < or = 19 years Acceptable: >45 mg/dL Borderline low: 40-45 mg/dL Low: <40 mg/dL Ages > or = 20 years Desirable: >or= 60 mg/dL Low: <40 mg/dL Literature References: 1. Expert Panel on Integrated Guidelines for Cardiovascular Health and Risk Reduction in Children and Adolescents. Pediatrics 2011;128:S213 2. NCEP Expert Panel. Circulation 2004;110:227 Current Interpretive Data was last revised on 2018. LDL, calculated 127 <=129 mg/dL RADHA REYNOLDS (SAMREEN) Comment: Interpretive Data Ages < or = 19 years Acceptable: <110 mg/dL Borderline high: 110-129 mg/dL High: >or= 130 mg/dL Ages > or = 20 years Optimal: <100 mg/dL Near optimal: 100-129 mg/dL Borderline high: 130-159 mg/dL High: >160 mg/dL Literature References: 1. Expert Panel on Integrated Guidelines for Cardiovascular Health and Risk Reduction in Children and Adolescents. Pediatrics 2011;128:S213 2. NCEP Expert Panel. Circulation 2004;110:227 Current Interpretive Data was last revised on 2018. Non-HDL Cholesterol 143 mg/dL RADHA REYNOLDS (SAMREEN) Comment: Interpretive Data Ages < or = 19 years Acceptable: <120 mg/dL Borderline high: 120-144 mg/dL High: >145 mg/dL Ages > or = 20 years When triglycerides are >200 mg/dL, Non-HDL cholesterol is a secondary target of therapy with treatment goals that are 30 mg/dL greater than the LDL cholesterol target. Literature References: 1. Expert Panel on Integrated Guidelines for Cardiovascular Health and Risk Reduction in Children and Adolescents. Pediatrics 2011;128:S213 2. NCEP Expert Panel. Circulation 2004;110:227 Current Interpretive Data was last revised on 2018. Chol/HDL ratio 4 PIOTR REYNOLDS (SAMREEN) Blood 01/30/2024 2:08 PM CDT 01/30/2024 4:09 PM CDT Narrative RADHA REYNOLDS (SAMREEN) - 01/30/2024 4:49 PM CDT Has the patient been fasting for 8 hours or more?->No Jad Gonsales MD LAB BLOOD ORDERABLES nal Result RADHA REYNOLDS (SAMREEN) 1 [facility] Department [place] [address] * Screening Mammogram Bilateral W Jimbo (01/22/2024 8:44 AM CDT) Anatomical Region Laterality Modality Breast Bilateral Mammography 01/22/2024 8:52 AM CDT Impressions 01/22/2024 8:52 AM CDT There is no mammographic evidence of malignancy. A 1 year screening mammogram is recommended. BI-RADS: 2 - Benign. The patient has been or will be contacted. The patient will be entered into a reminder system with a target due date of 1 year for her next mammogram. Electronically signed by: Melida Shell M.D. Narrative 01/22/2024 8:52 AM CDT EXAMINATION: SCREENING MAMMOGRAM BILATERAL W JIMBO ORDERING HEALTHCARE PROVIDER: SELF SCREENING MAMMOGRAM HISTORY: Routine screening mammography. COMPARISON: 08/25/2022,10/19/2020, 10/19/2016, 06/23/2014 TECHNIQUE: CC and MLO views of the bilateral breasts were obtained with digital technique using breast tomosynthesis with C view. Computer aided detection was utilized. FINDINGS: DENSITY: There are scattered fibroglandular elements in the bilateral breasts. BREASTS: There are vascular status in both breasts. There are stable benign-appearing calcifications bilaterally. There are no suspicious masses, suspicious calcifications, or other suspicious findings in either breast. There has been no suspicious interval change. us Self Screening Mammogram IMG MAMMO PROCEDURES Fi nal Result * Diabetic Eye Exam (04/14/2023) Generic External Data Provider [facility] Final Result * Dexa Axial Skeleton Bone Density 1 or 2 Site (01/23/2023 2:53 PM CDT) Anatomical Region Laterality Modality Body N/A Other 01/23/2023 9:46 PM CDT Narrative 01/23/2023 9:48 PM CDT EXAM DESCRIPTION: DEXA AXIAL SKELETON BONE DENSITY 1 OR MORE SITES REASON FOR STUDY: 67 y/o year old F with given history of: Screening osteoporosis Screening postmenopausal [employer]/Model: Skimble (S/N [id number]) CLINICAL INFORMATION: Current height: 62 inches Maximum height: 62 inches Weight: 217 pounds Risk factors: Postmenopausal, inflammatory bowel disease COMPARISON: None available FINDINGS: AP LUMBAR SPINE L1-L4: Total BMD is 1.030 g/cm2 T-score is -0.2 LEFT HIP: Total BMD is 0.984 g/cm2 T-score is 0.3 Femoral neck BMD is 0.791 g/cm2 T-score is -0.5 FRAX: FRAX not reported due to T-scores of hip, femoral neck and/or spine being at or above -1.0 (Normal). IMPRESSION: Normal bone mass. REFERENCE: Bone mineral density: Normal (T-score above or = -1.0) Low bone mass (T-score between -1.0 and -2.5) replaces the previously used term osteopenia Osteoporosis (T-score = or below -2.5) Medical evaluation for secondary causes of low bone mineral density may be appropriate. FRAX is a World Health Organization validated fracture risk assessment tool that calculates a person's 10 year probability of a major osteoporosis related fracture and hip fracture. According to the National Osteoporosis Foundation guidelines, postmenopausal women and men age 50 or older with low bone mass and a 10 year probability of a major osteoporosis related fracture = or greater than 20% or a 10 year probability of a hip fracture = or greater than 3% should be considered for treatment. For further information, including treatment recommendations, please refer to the 2019 ISCD Official Positions (http://www.iscd.org) and the NOF's Clinician's Guide to Prevention and Treatment of Osteoporosis (http://www.nof.org/professionals/clinical-guidelines) THIS IS AN ELECTRONICALLY VERIFIED FINAL REPORT 01/23/2023 9:48 PM - Electronically signed by Tanmay Francis M.D. MF: [id number] Report ID: [id number] Reading Location: [place] [address] Procedure Note Tanmay Francis MD - 01/23/2023 EXAM DESCRIPTION: DEXA AXIAL SKELETON BONE DENSITY 1 OR MORE SITES REASON FOR STUDY: 67 y/o year old F with given history of: Screening osteoporosis Screening postmenopausal [employer]/Model: Skimble (S/N [id number]) CLINICAL INFORMATION: Current height: 62 inches Maximum height: 62 inches Weight: 217 pounds Risk factors: Postmenopausal, inflammatory bowel disease COMPARISON: None available FINDINGS: AP LUMBAR SPINE L1-L4: Total BMD is 1.030 g/cm2 T-score is -0.2 LEFT HIP: Total BMD is 0.984 g/cm2 T-score is 0.3 Femoral neck BMD is 0.791 g/cm2 T-score is -0.5 FRAX: FRAX not reported due to T-scores of hip, femoral neck and/or spine beingat or above -1.0 (Normal). IMPRESSION: Normal bone mass. REFERENCE: Bone mineral density: Normal (T-score above or = -1.0) Low bone mass (T-score between -1.0 and -2.5) replaces thepreviously used term osteopenia Osteoporosis (T-score = or below -2.5) Medical evaluation for secondary causes of low bone mineral density may be appropriate. FRAX is a World Health Organization validated fracture risk assessmenttool that calculates a person's 10 year probability of a major osteoporosisrelated fracture and hip fracture. According to the National OsteoporosisFoundation guidelines, postmenopausal women and men age 50 or older with low bonemass and a 10 year probability of a major osteoporosis related fracture = or greater than 20% or a 10 year probability of a hip fracture = or greaterthan 3% should be considered for treatment. For further information, including treatment recommendations, please referto the 2019 ISCD Official Positions (http://www.iscd.org) and the NOF's Clinician's Guide to Prevention and Treatment of Osteoporosis (http://www.nof.org/professionals/clinical-guidelines) THIS IS AN ELECTRONICALLY VERIFIED FINAL REPORT 01/23/2023 9:48 PM - Electronically signed by Tanmay Francis M.D. MF: [id number] Report ID: [id number] Reading Location: [id number] us Wendi Bryant DO IMG DXA PROCEDURES Final R esult * COLONOSCOPY (10/05/2022 9:08 AM CDT) Anatomical Region Laterality Modality Other Narrative Procedure Note Rodrick Booker MD - 10/05/2022 9:08 AM CDT [facility] Patient Name: Latesha Jurado Procedure Date: 10/05/2022 9:08 AM Date of : 1955 Admit Type: Outpatient Age: 67 Gender: Female Attending MD: Rodrick Booker M.D. Room: [facility] ENDOSCOPY ROOM 2 Note Status: Finalized Patient Profile: This is a 67 year old female hx of HLD, HTN, DM, hypothyroidism, morbid obesity, GERD with peptic stricture s/p dilation, and multiple episodes of diverticulitis here for colon cancer surveillanceand diarrhea Procedure: Colonoscopy Indications: Last colonoscopy 5 years ago, Chronic diarrhea Referring MD: Maria Ines Olea.O. Providers: Rodrick Booker M.D. Impression: - Tortuous colon. - Diverticulosis in the sigmoid colon. - One 3 mm polyp in the sigmoid colon, removed witha jumbo cold forceps. Resected and retrieved. - Internal hemorrhoids. - Biopsies were taken with a cold forceps from the entire colon for evaluation of microscopiccolitis. Recommendation: - Patient has a contact number available for emergencies. The signs and symptoms of potential delayed complications were discussed with thepatient. Return to normal activities tomorrow. Written discharge instructions were provided to thepatient. - Discharge patient to home (with escort). - Resume previous diet. - Continue present medications. - Await pathology results. - Repeat colonoscopy in 7-10 years for surveillance based on pathology results. - Return to primary care physician as previously scheduled. Medicines: Monitored Anesthesia Care Complications: No immediate complications. Estimated Blood Loss: Estimated blood loss was minimal. Estimated bloodloss was minimal. Procedure: Pre-Anesthesia Assessment: - Prior to the procedure, a History and Physicalwas performed, and patient medications and allergieswere reviewed. The patient is competent. The risks and benefits of the procedure and the sedation optionsand risks were discussed with the patient. Allquestions were answered and informed consent was obtained. Patient identification and proposed procedure were verified by the physician, the nurse and the behavior analyst in the endoscopy suite. Mental Status Examination: normal. Prophylactic Antibiotics: The patient does not require prophylactic antibiotics. Prior Anticoagulants: The patient has taken no anticoagulant or antiplatelet agents. ASA Grade Assessment: III - A patient with severe systemic disease. After reviewing the risks and benefits,the patient was deemed in satisfactory condition to undergo the procedure. The anesthesia plan was touse monitored anesthesia care (MAC). Immediately priorto administration of medications, the patient was re-assessed for adequacy to receive sedatives. The heart rate, respiratory rate, oxygen saturations, blood pressure, adequacy of pulmonary ventilation,and response to care were monitored throughout the procedure. The physical status of the patient was re-assessed after the procedure. The benefits, risks and alternatives of theprocedure and sedation were discussed and informed consentwas obtained. All questions were answered. Please referto the signed informed consent document in the medical record. The bowel preparation used was Miralax and bisacodyl tablets via split dose instruction. The scope was passed under direct vision. TheColonoscope [id number] was introduced through the anus and advanced to the the cecum, identified by appendiceal orifice and ileocecal valve. The colonoscopy was performed with moderate difficultydue to a tortuous colon. The patient tolerated the procedure well. The quality of the bowelpreparation was good. Bowel prep was administered using a split dose. Findings: The perianal and digital rectal examinations were normal. The sigmoid colon was significantly tortuous. Advancing the scope required withdrawing the scope and replacing with the pediatric colonoscope and manual pressure. Multiple small and large-mouthed diverticula were found in thesigmoid colon. A 3 mm polyp was found in the sigmoid colon. The polyp was flat. The polyp was removed with a jumbo cold forceps. Resection and retrieval were complete. Internal hemorrhoids were found during retroflexion. Biopsies for histology were taken with a cold forceps from the entire colon for evaluation of microscopic colitis. Rodrick Booker M.D. 10/05/2022 12:01:21 PM Number of Addenda: 0 Note Initiated On: 10/05/2022 9:08 AM Procedure Code(s): --- Professional --- 71787, Colonoscopy, flexible; with biopsy, single or multiple --- Technical --- 62184, Colonoscopy, flexible; with biopsy, single or multiple Diagnosis Code(s): --- Professional --- K64.8, Other hemorrhoids D12.5, Benign neoplasm of sigmoid colon K52.9, Noninfective gastroenteritis and colitis, unspecified K57.30, Diverticulosis of large intestine without perforation orabscess without bleeding Q43.8, Other specified congenital malformations of intestine --- Technical --- K64.8, Other hemorrhoids D12.5, Benign neoplasm of sigmoid colon K52.9, Noninfective gastroenteritis and colitis, unspecified K57.30, Diverticulosis of large intestine without perforation orabscess without bleeding Q43.8, Other specified congenital malformations of intestine CPT copyright 2020 [employer]. All rights reserved. The codes documented in this report are preliminary and upon soils engineer reviewmay be revised to meet current compliance requirements. Recognized by the [employer] for promoting quality in endoscopy oRdrick Booker MD ENDOSCOPY PROCEDURES Final Resul t * Hepatitis C antibody (01/22/2021 5:22 PM CDT) Hep C Ab Nonreactive Nonreactive RADHA DUKE Comment:Antibodies to HCV no t detected. Does NOT exclude the possibility of recent exposure to HCV. Blood specimen (specimen) 01/22/2021 5:22 PM CDT 01/22/2021 5:59 PM CDT Beth Sierra MD LAB MICROBIOLOGY - GENERAL ORD ERABLES Edited Result - Final [facility] Department [place] [address] from Last 3 Months or Most Recently Relevant to Health Maintenance Insurance [facility] MEDICARE ADVANTAGE [facility] MEDICARE Address: [address] [address] [place] [address] [employer] [facility] MEDICARE ADVANTAGE [facility] MEDIC[facility] Address: [address] [address] [place] [address] [facility] MEDICARE ADVANTAGE [facility] MEDIC[facility] Address: [address] [address] [place] [address] [employer] Advance Directives For more information, please contact: [phone] * Full Code (Latest Code Status on File) Date Activated Date Inactivated Comments 07/11/2024 10:53 AM 07/11/2024 4:32 PM * Full Code Date Activated Date Inactivated Comments 07/11/2024 10:53 AM 07/11/2024 10:53 AM * Full Code Date Activated Date Inactivated Comments 04/03/2024 11:30 AM 04/04/2024 3:14 PM * Full Code Date Activated Date Inactivated Comments 12/25/2023 12:06 PM 12/25/2023 7:31 PM * Full Code Date Activated Date Inactivated Comments 06/28/2023 7:41 AM 06/28/2023 2:18 PM Care Teams Mat Cutter Relationship Specialty Start Date End Date Jad Gonsales MD [address] [facility] [address] Curtis [facility] [address] [place] [address] PCP - General Family Medicine 01/15/24 Connie Jordan MD [address] [facility] [address] [place] [address] Consulting Physician Sleep Medicine 01/16/23 Rodrick Booker MD [address] [facility] [address] [place] [address] Consulting Physician Gastroenterology 01/16/23 Leonila Mac MD [address] [facility] [address] [place] [address] Consulting Physician Endocrinology 01/16/23 Koko Demarco MD [address] [facility] [address] P[address] Curtis [facility] [address] [place] [address] Consulting Physician General Surgery 01/18/24
--- OUTSIDE RECORDS SUMMARY | 2024-09-23 15:21 | XMS_ITS | Clinical Summary ---
Author Organization [facility] Address [address] [place] [address] Care Team Providers Care Tow Car Driver Name Role Phone Connie Jordan MD Unavailable Rodrick Booker MD Unavailable Leonila Mac MD Unavailable [phone] Jad Gonsales MD Primary Care Provider Koko Demarco MD Unavailable Allergies Active Allergy Reactions Criticality Noted Date [...] neuropathy, without long-term current use of insulin ([facility]) USE 1 STRIP TO MONITOR BLOOD SUGARS DAILY 50 each 03/19/20 24 Active Accu-Chek Softclix Lancets lancetsIndications :Type 2 diabetes mellitus with diabetic neuropathy, without long-term current use of insulin ([facility]) USE 1 LANCET TO CHECK GLUCOSE ONCE DAILY 100 each 03/19/20 24 Active docusate sodium (COLACE) 100 mg capsuleIndications :constipation Take 1 capsule (100 mg total) by mouth 2 (two) times a day for 7 days 14 capsule 04/04/20 24 Active hyoscyamine (OSCIMIN) 0.125 mgIndications:Urin john Incontinence Take 1 tablet (125 mcg total) by mouth every 4 (four) hours as needed (hiccups. stomach spasm) for up to 5 days 30 tablet 04/04/20 24 Active senna-docusate (PERICOLACE) 8.6-50 mg Take 1 tablet by mouth daily 30 tablet 04/09/20 24 Active losartan-hydroCHLO ROthiazide (HYZAAR) 100-12.5 mg per tabletIndications: Hypertension associated with diabetes (HCC) Take 1 tablet by mouth daily 90 tablet 3 04/16/20 24 025 Active atorvastatin (LIPITOR) 40 mg tabletIndications: Type 2 diabetes mellitus with diabetic neuropathy, without long-term current use of insulin (HCC),Hyperlipidem ia associated with type 2 diabetes mellitus (HCC) Take 1 tablet (40 mg total) by [...] time Assessment & Plan (04/16/2024 11:51 AM SIZING MACHINE OPERATOR): - chronic condition, controlled - has [...] on Colace 100 mg twice daily and [place] 5-325 mg every 6 hours as needed [...] on Colace 100 mg twice daily and [place] 5-325 mg every 6 hours as needed for pain -Start OTC MiraLax daily as needed for constipation -Continue on omeprazole 40 mg twice daily and famotidine 40 mg twice daily -Continue following activity and dietary restrictions as advised by surgery -Follow up with PCP as scheduled S/P TKR (total knee replacement), left Preventative health care 01/19/2024 Assessment & Plan (01/19/2024 [...] medicine Assessment & Plan (04/16/2024 12:13 PM SIZING MACHINE OPERATOR): - chronic condition - uses Ropinirole [...] Vitamin D supplementation - start Vitamin D2 85762 weekly, script sent in - after 12 weeks switch to 5000IU daily Lab Results Component Value Date 25HYDROVITD 17 (L) 07/25/2023 25HYDROVITD 18 (L) 01/22/2021 Assessment & Plan (08/04/2023 11:36 AM SIZING MACHINE OPERATOR): Labs ordered, will follow. Vit D3 2,000 international units recommended daily. Esophagitis 07/03/2023 Rosacea 05/23/2023 Assessment & Plan (01/18/2024 4:10 PM CDT): - Chronic condition, stable, currently using metronidazole gel, continue therapy Assessment & Plan (05/23/2023 9:51 PM SIZING MACHINE OPERATOR): Refill given for metronidazole gel. OAB [...] hyperlipidemia Assessment & Plan (04/16/2024 11:43 AM SIZING MACHINE OPERATOR): Wt Readings from Last 3 Encounters: [...] eating Assessment & Plan (08/04/2023 11:33 AM SIZING MACHINE OPERATOR): Weight reduction, daily exercise and dietary modifications recommended., as obesity can complicate their diabetes mellitus, hypercholesterolemia, and hypertension Assessment & Plan (06/26/2023 9:32 PM SIZING MACHINE OPERATOR): Weight reduction, daily exercise and dietary modifications recommended., as obesity can complicate their diabetes mellitus and hypertension Assessment & Plan (06/16/2023 1:33 PM SIZING MACHINE OPERATOR): This is a chronic condition which continues 7 lb weight gain since last office visit Encouraged increased activity Ambulatory referral to staff educator/nutritional counseling Encouraged her to walk her [...] mellitus Assessment & Plan (07/12/2022 5:27 PM SIZING MACHINE OPERATOR): Weight reduction, daily exercise and dietary [...] number Assessment & Plan (07/12/2022 5:28 PM SIZING MACHINE OPERATOR): Will need referral to urogyn for [...] eating Assessment & Plan (04/22/2023 6:39 PM SIZING MACHINE OPERATOR): Has constant nausea for the past [...] tolerated Assessment & Plan (07/29/2022 1:09 PM SIZING MACHINE OPERATOR): Prescription given, use as directed. Assessment & Plan (07/12/2022 5:27 PM SIZING MACHINE OPERATOR): Chronic, referred to GI for further eval/mgmt. ANJELICA (generalized anxiety disorder) 10/19/2020 Assessment & Plan (08/27/2024 2:57 PM CDT): Chronic condition, not at goal, persisting issue Used to see psychiatry Reports past diagnosis of Bipolar disorder, and now borderline personality disorder, anxiety, depression, PTSD Reports hx of eating disorder in the Doing counseling at [facility] but not medication assistance Currently on Prozac 40 mg daily 5/7 nighty, along with Trazodone 100 mg nightly only. She is also on Buspirone 10 mg BID with some inconsistency In past has been on Venlafaxine, Bupropion, Abilify, Celexa, ALprazolam, Mirtazapine Recommend psychiatric assistance (used to see psychiatry at [facility] but no longer after provider commented about [...] needed Assessment & Plan (04/16/2024 12:19 PM SIZING MACHINE OPERATOR): Chronic condition, not at goal, persisting issue Used to see psychiatry Reports past diagnosis of Bipolar disorder, and now borderline personality disorder, anxiety, depression, PTSD Reports hx of eating disorder in the 1980s Has been on many medications Doing counseling at [facility] but not medication assistance Currently on Prozac 20 mg daily --> increase to 40 mg daily, script sent in Continue with Trazodone 100 mg nightly only In past has been on Venlafaxine, Bupropion, Abilify, Celexa, ALprazolam, Mirtazapine Recommend psychiatric assistance (used to see psychiatry at [facility] but no longer after provider commented about [...] been on many medications Doing counseling at [facility] but not medication assistance Currently on Prozac 20 mg daily, Trazodone 100 mg nightly only In past has been on Venlafaxine, Bupropion, Abilify, Celexa, ALprazolam, Mirtazapine Recommend psychiatric assistance (used to see psychiatry at [facility] but no longer after provider commented about her obesity) Continue current management for now Assessment & Plan (08/04/2023 11:33 AM SIZING MACHINE OPERATOR): Clinically improved, continue current prescription medications, [...] stenosis Assessment & Plan (07/28/2023 4:38 PM SIZING MACHINE OPERATOR): 2/2 severe esophagitis, also has non-obstructing [...] therapy Assessment & Plan (06/20/2023 9:22 PM SIZING MACHINE OPERATOR): For the past week with worsening [...] Avoid benzos, sedatives, anticholinergics - Recommend Interpersonal Psychotherapy:[facility] ([phone]) or [facility] ([phone]) - Psych recommendations for changes to consider [...] Reports hx of eating disorder in the Doing counseling at [facility] but not medication assistance Currently on Prozac 40 mg daily 5/7 nighty, along with Trazodone 100 mg nightly only. She is also on Buspirone 10 mg BID with some inconsistency In past has been on Venlafaxine, Bupropion, Abilify, Celexa, ALprazolam, Mirtazapine Recommend psychiatric assistance (used to see psychiatry at [facility] but no longer after provider commented about [...] needed Assessment & Plan (04/16/2024 12:19 PM SIZING MACHINE OPERATOR): Chronic condition, not at goal, persisting issue Used to see psychiatry Reports past diagnosis of Bipolar disorder, and now borderline personality disorder, anxiety, depression, PTSD Reports hx of eating disorder in the Has been on many medications Doing counseling at [facility] but not medication assistance Currently on Prozac 20 mg daily --> increase to 40 mg daily, script sent in Continue with Trazodone 100 mg nightly only In past has been on Venlafaxine, Bupropion, Abilify, Celexa, ALprazolam, Mirtazapine Recommend psychiatric assistance (used to see psychiatry at [facility] but no longer after provider commented about [...] been on many medications Doing counseling at [facility] but not medication assistance Currently on Prozac 20 mg daily, Trazodone 100 mg nightly only In past has been on Venlafaxine, Bupropion, Abilify, Celexa, ALprazolam, Mirtazapine Recommend psychiatric assistance (used to see psychiatry at [facility] but no longer after provider commented about her obesity) Continue current management for now Assessment & Plan (08/04/2023 11:29 AM SIZING MACHINE OPERATOR): Stable. Cont. Current prescription medications, fluoxetine, mirtazapine. Assessment & Plan (02/20/2023 2:28 PM CDT): Stable. Cont. Current prescription medications, fluoxetine, trazodone. Assessment & Plan (01/16/2023 11:07 AM CDT): Patient reports that she is now being seen by [facility]. She feels better. Continue fluoxetine. Assessment & Plan (09/01/2022 2:35 PM CDT): Believe she did do okay with Prozac in the past in is okay with restarting Prozac. Will restart Prozac 20 mg once daily. Assessment & Plan (07/12/2022 5:34 PM SIZING MACHINE OPERATOR): Patient admits to being so depressed, [...] atorvastatin Assessment & Plan (08/04/2023 11:31 AM SIZING MACHINE OPERATOR): A1c near goal of< 8.0. Low carbs diet recommended. Keep nunu appt with Endocrinology, continue current meds, atorvastatin, losartan, Januvia. Assessment & Plan (06/16/2023 1:31 PM SIZING MACHINE OPERATOR): This is a chronic condition which [...] atorvastatin Assessment & Plan (06/16/2023 1:07 PM SIZING MACHINE OPERATOR): >>ASSESSMENT AND PLAN FOR TYPE 2 DIABETES MELLITUS WITH DIABETIC NEUROPATHY, WITHOUT LONG-TERM CURRENT USE OF INSULIN ([facility]) ([facility]) WRITTEN ON 01/16/2023 11:08 AM BY WENDI BRYANT, DO A1c at goal of less than 8.0, continue current prescription medications, atorvastatin, losartan, metformin XR. >>ASSESSMENT AND PLAN FOR DIABETIC POLYNEUROPATHY ASSOCIATED WITH TYPE 2 DIABETES MELLITUS ([facility]) ([facility]) WRITTEN ON 01/16/2023 11:11 AM BY WENDI BRYANT DO Stable. Cont. Current prescription medications, gabapentin, amitriptyline. Assessment & Plan (09/10/2022 10:19 PM CDT): A1c at goal of less than 8.0, may continue metformin xr. Rx sent. Cont atorvastatin, losartan. Assessment & Plan (06/16/2023 1:07 PM SIZING MACHINE OPERATOR): >>ASSESSMENT AND PLAN FOR TYPE 2 DIABETES MELLITUS WITH DIABETIC NEUROPATHY, WITHOUT LONG-TERM CURRENT USE OF INSULIN ([facility]) ([facility]) WRITTEN ON 07/12/2022 5:33 PM BY WENDI BRYANT, DO A1c at goal of less than 8.0. Trial of glimepiride. Low carbs diet recommended. >>ASSESSMENT AND PLAN FOR DIABETIC POLYNEUROPATHY ASSOCIATED WITH TYPE 2 DIABETES MELLITUS ([facility]) ([facility]) WRITTEN ON 07/12/2022 5:27 PM BY WENDI BRYANT DO Stable. Cont. Current prescription medications. Assessment & Plan (10/19/2020 5:04 PM CDT): Adequate control based on A1C 6.2% despite non-adherence to metformin. Will not make changes to regimen. Acquired hypothyroidism 07/09/2020 Assessment & Plan (04/16/2024 12:18 PM SIZING MACHINE OPERATOR): This is a chronic condition which [...] day. Assessment & Plan (08/04/2023 11:31 AM SIZING MACHINE OPERATOR): Asymptomatic. Stable. Continue current prescription medications, levothyroxine. Assessment & Plan (01/16/2023 11:08 AM CDT): Asymptomatic. Stable. Continue current prescription medications, levothyroxine. Assessment & Plan (07/12/2022 5:31 PM SIZING MACHINE OPERATOR): Labs ordered, will follow. Cont current Rx meds. Hyperlipidemia associated with type 2 diabetes debby grover 07/09/2020 Assessment & Plan (04/16/2024 12:18 PM SIZING MACHINE OPERATOR): - chronic condition - status: is [...] prescribed. Assessment & Plan (08/04/2023 11:32 AM SIZING MACHINE OPERATOR): LDL near goal of < 100, continue atorvastatin. Low chol diet recommended. Assessment & Plan (06/16/2023 1:32 PM SIZING MACHINE OPERATOR): This is a chronic condition which [...] atorvastatin. Assessment & Plan (07/12/2022 5:31 PM SIZING MACHINE OPERATOR): LDL not at goal of < [...] medications The 10-year ASCVD risk score (Kerwin DELATORRE, et al., 2019) is: 22.8% Values used [...] 04/04/2024 Assessment & Plan (04/16/2024 12:09 PM SIZING MACHINE OPERATOR): Blood Pressure Management BP Readings from [...] above The 10-year ASCVD risk score (Kerwin DELATORRE, et al., 2019) is: 18.3% Values used [...] above The 10-year ASCVD risk score (Kerwin DELATORRE, et al., 2019) is: 21.2% Values used [...] prescribed. Assessment & Plan (08/04/2023 11:32 AM SIZING MACHINE OPERATOR): Blood pressure at goal less than 140/90, continue current prescription medications, amlodipine, HCTZ, losartan. Assessment & Plan (06/16/2023 1:32 PM SIZING MACHINE OPERATOR): This is a chronic condition which [...] losartan. Assessment & Plan (07/12/2022 5:30 PM SIZING MACHINE OPERATOR): BP slightly above goal o f< [...] - Prilosec 40 BID started, pt will berry picker today - Rx for Zofran in [...] proceed. Assessment & Plan (08/04/2023 11:33 AM SIZING MACHINE OPERATOR): Asymptomatic. Stable. Continue current prescription medications, Pantoprazole. Followed by GI. Assessment & Plan (07/28/2023 4:35 PM SIZING MACHINE OPERATOR): Since last visit had EGD 06/28/2023 [...] lifestyle Assessment & Plan (04/22/2023 6:35 PM SIZING MACHINE OPERATOR): Heartburn not currently controlled, not on any meds right now. EGD 2020 showed benign stenosis dilated to 19 mm with TTS also noted to have small HH that time. Will start omeprazole 40 mg daily and counseled on antireflux lifestyle modifications Assessment & Plan (07/12/2022 5:29 PM SIZING MACHINE OPERATOR): Symptomatic, encouraged compliance with medications, did [...] 06/26/202301/2024 Assessment & Plan (08/04/2023 11:34 AM SIZING MACHINE OPERATOR): Ibuprofen prn pain, referred to Ortho. Assessment & Plan (06/26/2023 9:32 PM SIZING MACHINE OPERATOR): Xrays ordered, ibuprofen for pain. Will follow. History of COVID-19 05/23/2023 01/18/20 24 Assessment & Plan (05/23/2023 9:51 PM SIZING MACHINE OPERATOR): Rx given, increase fluid intake. Rest. Go to nearest ER if S/Sxs worsen. Overactive bladder 04/05/2023 Screening for colon cancer 07/12/2022 0 01/16/2023 Overview (07/12/2022): Added automatically from request for surgery [id number] Pruritus 06/03/2021 01/18/2024 Overview (06/03/2021): Itching in [...] attacks. Today, I went over the pt's [facility] 10/11-10/12 test results and provided reassuring. Psych management as above. Diverticulosis 01/18/2024 Encounters Date Type Department Care Team Description 09/04/19 2:00 PM CDT Office Visit [facility] Sleep Medicine at [address] [place] [phone] Connie Jordan MD Snoring (Primary Dx); Hypersomnia; Restless leg syndrome; Insomnia, unspecified type 08/28/19 2:30 PM CDT Office Visit [facility] Primary Care at [place] [phone] Jad Gonsales MD ANJELICA (generalized anxiety disorder) (Primary Dx); Acquired hypothyroidism; Hypertension associated with diabetes (HCC); Moderate episode of recurrent major depressive disorder (HCC); Psychophysiologic insomnia; Class 1 obesity due to excess calories with serious comorbidity and body mass index (BMI) of 33.0 to 33.9 in adult; Heart murmur; Type 2 diabetes mellitus without complication, without long-term current use of insulin (HCC) 08/28/19 Telephone [facility] Primary Care at [address] [phone] Jad Gonsales MD issues with eyes 08/01/19 3:00 PM SIZING MACHINE OPERATOR Office Visit [facility] Diabetes Endocrine Care at [address] [phone] Rut Patel NP Type 2 diabetes mellitus without complication, without long-term current use of insulin (HCC) (Primary Dx); Hyperlipidemia associated with type 2 diabetes mellitus (HCC); Hypertension associated with diabetes (HCC); Acquired hypothyroidism; Class 2 severe obesity due to excess calories with serious comorbidity and body mass index (BMI) of 36.0 to 36.9 in adult (HCC) 07/30/19 Nurse Triage [facility] Primary Care at [address] [phone] Jad Gonsales MD 07/11/19 12:00 PM SIZING MACHINE OPERATOR - 07/11/19 12:35 PM SIZING MACHINE OPERATOR Surgery [facility] [address] [place] [address] Rodrick Booker MD ESOPHAGOGASTRODUODENOSCOPY 07/11/19 11:22 AM SIZING MACHINE OPERATOR Anesthesia Event [facility] [address] [place] [address] Andrés Moreno MD 07/11/19 10:47 AM SIZING MACHINE OPERATOR - 07/11/19 12:32 PM SIZING MACHINE OPERATOR Hospital Encounter [facility] [address] [place] [address] Rodrick Booker MD Discharge Disposition: Discharge to home or self care 07/11/19 Telephone [facility] Gastroenterology at [address] [place] [address] Mery Phan 07/11/19 Orders Only [facility] Gastroenterology at [address] [place] [address] Rodrick Booker MD from Last 3 Months Immunizations Immunization Administration Dates Next Due Influenza, Quadrivalent, Spl it, Preservative Free, Intramuscular 04/26/2021(Deferred: Patient Refused) Influenza, Unspecified 04/16/2024(Deferr ed: Patient Refused),04/16/2024(Deferred: Patient Refused),04/08/2024(Deferred: Patient Refused),03/12/2024(Deferred: Patient Refused),06/22/2023(Deferred: Patient Refused),01/10/2023(Deferred: Patient Refused),09/29/2022(Deferred: Patient Refused),07/12/2022(Deferred: Patient Refused),06/22/2022(Deferred: Patient Refused),01/10/2022(Deferred: Patient Refused) Pneumococcal Conjugate Pcv20 01/16/2023 Pneumococcal, Unspecified 08/29/2022(Deferred: P atient Refused) Tdap 04/26/2021 Surgical History Surgery Date Site/Laterality Comments SECTION HYSTERECTOMY total REPLACEMENT TOTAL KNEE Left COLONOSCOPY UPPER GASTROINTESTINAL ENDOSCOPY BLADDER SURGERY 06/12/2022 - 06/11/2023 HERNIA REPAIR 04/03/2024 Paraesophageal ESOPHAGOGASTRODUODENOSCOPY 07/11/2024 Medical History Medical History Date Comments GERD (gastroesophageal reflu x disease) Diverticulosis Hyperlipidemia Hypertension Type 2 diabetes mellitus (HCC) Hypothyroidism Restless leg syndrome Bipolar disorder (HCC) Depression depression and a nxiety Motion sickness Anxiety Other neuromuscular dysfunct ion of bladder interstim neurostimulator de vice in bladder Hiatal hernia 01/19/2024 Family History * Patient is adopted Medical History Relation Name Comments Breast cancer Sister Relation Name Status Comments Father Mother Sister Social History Tobacco Use Types Packs/Day Years Used Date Smoking Tobacco: Never Smokeless Tobacco: Never Tobacco Cessation:Counseling Given: Yes [facility] Utilities Answer Date Recorded In the past 12 months has th e Language Learning Class, gas, oil, or water [employer] threatened to shut off services in your [...] often do you attend chur ch or zoroastrianism services? Never 03/06/2024 Do you belong to any clubs o r organizations such as restoration groups, unions, fraternal or athletic groups, or [...] any time in the past 12 m [facility], were you homeless or living in a usp (including now)? No 03/06/2024 Personal Safety Answer Date Recorded Have you ever been in or are you currently in a harmful physical or emotional relationship or is someone making you feel afraid or unsafe? Denies 07/11/2024 Comments No Sex and Gender Information Value Date Recorded Sex Assigned at Not on file Legal Sex Female 4:31 PM SIZING MACHINE OPERATOR Gender Identity Not on file Sexual Orientation Not on file Obstetrics History Para Term AB IAB SAB Ectopic Multiple Livin g Live Births 4 4 4 Date Outcome GA Total Labor Labor/2nd/3rd Weight Sex Type Anes PTL Kandace A1 A5 Name Clin Term Term Term Term Last Filed Vital Signs Vital Sign Reading [...] 09/03/2024 2:08 PM CDT Plan of Treatment Health Maintenance Due Date Last Done Comments Zoster Vaccine (1 of 2) 2007 Well Visit 65+ 01/17/2025 01/18/2024, 01/16/2023 Breast Cancer Screening-Mammogram 01/21/2025 01/22/2024, 08/25/2022, 10/19/2020 Osteoporosis Screening-Bone Density Scan 01/23/2025 01/23/2023 Albumin Creatinine Ratio, Urine 01/29/2025 01/30/2024, 02/21/2023, 07/12/2022, Additional history exists Foot Exam 01/29/2025 01/30/2024, 04/0 08/2023, 06/16/2023, Additional history exists Hemoglobin A1C 01/29/2025 08/01/2024, 11/0 10/2023, 01/18/2024, Additional history exists Lipid Panel 01/29/2025 01/30/2024, 07/13, 02/21/2023, Additional history exists Influenza Vaccine (Season Ended) 2025 eGFR 04/04/2025 04/04/2024, 03/13, 03/26/2024, Additional history exists Dilated Eye Exam 04/14/2025 04/14/2023 Depression Screening 08/27/2025 08/27/2024, 04/16/2024, 04/08/2024, Additional history exists Fall Risk Assessment 08/27/2025 08/27/2024, 07/11/2024, 04/16/2024, Additional history exists DTaP/Tdap/Td Vaccine (2 - Td or Tdap) 04/26/2031 04/26/2021 Colon Cancer Screening-Colonoscopy 10/05/20322022 Hepatitis C Screening Completed 01/22/2021 Pneumococcal vaccine 65+ Completed 01/16/2023 Hepatitis B Screening Completed 01/30/2024 Medical Devices Implanted Type Area Director Of Outreach Device Identifier Shelf Expiration Date Model / Serial / Lot [employer] Kit Lead Neurostimulator Urinary Control Sacral Test Interstim [id number] - [id number] Implanted:Qty: 1 on 03/28/2023 by Angela Rand MD at [facility] N/A: Sacrum [employer] 01/27/2024 [id number] / / [id number] [employer] Lead Neurostimulator Urinary Control Sacral Test Interstim [id number] - [id number] Implanted:Qty: 1 on 03/28/2023 by Angela Rand MD at [facility] N/A: Sacrum [employer] 05/23/2024 [id number] / / [id number] [employer] Kit Lead Neurostimulator Percutaneous 4.32mm Spacing Interstim Surescan 28cm [id number] - [id number] Implanted:Qty: 1 on 05/02/2023 by Angela Rand MD at [facility] N/A: Sacrum [employer] 03/01/2024 [id number] / / [id number] [employer] Generator Neurostimulator Bowel Bladder Recharge Free Interstim X [id number] - [id number] - [id number] Implanted:Qty: 1 on 05/02/2023 by Angela Rand MD at [facility] N/A: Buttocks [employer] 09/06/2024 [id number] / [id number] / [employer] Envelope Absrb 2.7x2.5in Antibacterial Tyrx Medium Strl [id number] - [id number] Implanted:Qty: 1 on 05/02/2023 by Angela Rand MD at [facility] N/A: Buttocks [employer] [id number] 02/10/2024 [id number] / / [id number] Procedures Procedure Name Priority Date/Time Associated Diagnosis Comments POCT HEMOGLOBIN A1C Routine 08/01/2024 3:15 PM SIZING MACHINE OPERATOR Type 2 diabetes mellitus without complication, without long-term current use of insulin (HCC) POCT GLUCOSE Routine 08/01/2024 3:12 PM SIZING MACHINE OPERATOR Type 2 diabetes mellitus without complication, without long-term current use of insulin (HCC) ESOPHAGOGASTRODUODENOSCOPY 01/30 /2025 11:16 AM SIZING MACHINE OPERATOR History of gastric polyp Esophagitis POCT GLUCOSE DEVICE Routine 07/11/2024 11:13 AM SIZING MACHINE OPERATOR EGD 07/11/2024 10:52 AM SIZING MACHINE OPERATOR EGFR Routine 04/04/2024 3:47 AM CDT [...] * POCT hemoglobin A1c (08/01/2024 3:15 PM SIZING MACHINE OPERATOR) Hemoglobin A1C, POC 5.7 4.0 - 5.6 % Blood 08/01/2024 3:15 PM SIZING MACHINE OPERATOR us Rut Patel NP POINT OF CARE TEST ORDERABLES F inal Result * POCT glucose (08/01/2024 3:12 PM SIZING MACHINE OPERATOR) Glucose Blood, POC 151 mg/dL Blood 08/01/2024 3:12 PM SIZING MACHINE OPERATOR us Rut Patel JUMPBASTING COLLAR BASTER POINT OF CARE TEST ORDERABLES F inal Result * POCT glucose (07/11/2024 11:13 AM SIZING MACHINE OPERATOR) Glucose, POC 109 70 - 199 mg/dL Blood 07/11/2024 11:1 3 AM SIZING MACHINE OPERATOR 07/11/2024 11:13 AM SIZING MACHINE OPERATOR us Rodrick Booker MD LAB POCT ORDERABLES - DEVICE Fin al Result [facility]) 1 [facility] Department [place] [address] * EGD (07/11/2024 10:52 AM SIZING MACHINE OPERATOR) Anatomical Region Laterality Modality Other Narrative Procedure Note Rodrick Booker MD - 07/11/2024 10:52 AM CST [facility] Patient Name: Latesha Jurado Procedure Date: 07/11/2024 10:52 AM Date of : 1955 Admit Type: Outpatient Age: 68 Gender: Female Attending MD: Rodrick Booker M.D. Room: [facility] ENDOSCOPY ROOM 2 Note Status: Finalized Patient [...] procedure were verified by the physician, the inflated ball molder and the sterilisation technician in the endoscopy suite. Mental Status [...] passed under direct vision. The Endoscope [id number] was introduced through the mouth, and advanced [...] 10:52 AM Procedure Code(s): --- Professional --- 15520, 52, Esophagogastroduodenoscopy, flexible, transoral;diagnostic, including collection of specimen(s) by brushing or washing, when performed (separate procedure) --- Technical --- 17664, 52, Esophagogastroduodenoscopy, flexible, transoral;diagnostic, including collection of specimen(s) by brushing or washing, when performed (separate procedure) Diagnosis Code(s): --- Professional --- K20.90, Esophagitis, unspecified without bleeding --- Technical --- K20.90, Esophagitis, unspecified without bleeding CPT copyright 2020 [employer]. All rights reserved. The codes documented in this report are preliminary and upon administrative office manager reviewmay be revised to meet current compliance requirements. Recognized by the [employer] for promoting quality in endoscopy Rodrick Booker MD ENDOSCOPY PROCEDURES Final Resul [...] 3:47 AM CDT 04/04/2024 4:18 AM CDT Koko Demarco MD LAB BLOOD ORDERA BLES Final Result [facility] 1 [facility] Department [place] [address] * Albumin Creatinine Ratio, Urine (01/30/2024 3:37 PM CDT) Albumin Ur <12.0 mg/L Comment: Interpretive Data No reference range established. Current interpretive data was last revised 2018. Creatinine Ur 68.2 mg/dL [facility] Comment: Interpretive Data No reference range established. Current interpretive data was last revised 2018. Albumin Creatinine Ratio, Ur <18 1 - 29 mg/g [facility] Urine 01/30/2024 3:37 PM CDT 01/30/2024 8:23 PM CDT us Rut Patel NP LAB URINE ORDERABLES Final Resu lt [facility] [address] Department [place] [address] * Lipid panel (01/30/2024 2:08 PM CDT) [...] more?->No Jad Gonsales MD LAB BLOOD ORDERABLES Fi nal Result [facility]) 1 [facility] Department [place] [address] * Screening Mammogram Bilateral W Jimbo (01/22/2024 [...] nal Result * Diabetic Eye Exam (04/14/2023) [facility] External Data Provider HEALTH MAINTENANC E Final Result * Dexa Axial Skeleton Bone Density 1 or 2 Site (01/23/2023 2:53 PM CDT) Anatomical Region Laterality Modality Body N/A Other 01/23/2023 9:46 PM CDT Narrative 01/23/2023 9:48 PM CDT EXAM DESCRIPTION: DEXA AXIAL SKELETON BONE DENSITY 1 OR MORE SITES REASON FOR STUDY: 67 y/o year old F with given history of: Screening osteoporosis Screening postmenopausal Director Of Outreach/Model: Chunyu Discovery SL (S/N [id number]) CLINICAL INFORMATION: Current height: 62 inches Maximum [...] Tanmay Francis M.D. MF: MIKE Report ID: [id number] Reading Location: [place] [address] Procedure Note Tanmay Francis MD - 01/23/2023 EXAM DESCRIPTION: DEXA AXIAL SKELETON BONE DENSITY 1 OR MORE SITES REASON FOR STUDY: 67 y/o year old F with given history of: Screening osteoporosis Screening postmenopausal Director Of Outreach/Model: [employer] Discovery SL (S/N [id number]) CLINICAL INFORMATION: Current height: 62 inches Maximum [...] Tanmay Francis M.D. MF: MIKE Report ID: [id number] Reading Location: [id number] Wendi Bryant DO IMG DXA PROCEDURES Final R esult * COLONOSCOPY (10/05/2022 9:08 AM CDT) Anatomical Region Laterality Modality Other Narrative Procedure Note Rodrick Booker MD - 10/05/2022 9:08 AM CDT [facility] Patient Name: Latesha Jurado Procedure Date: 10/05/2022 9:08 AM Date of : 1955 Admit Type: Outpatient Age: 67 Gender: Female Attending MD: Rodrick Booker M.D. Room: [facility] ENDOSCOPY ROOM 2 Note Status: Finalized Patient Profile: This is a 67 year old female hx of HLD, HTN, DM, hypothyroidism, morbid obesity, GERD with peptic stricture s/p dilation, and multiple episodes of diverticulitis here for colon cancer surveillanceand diarrhea Procedure: Colonoscopy Indications: Last colonoscopy 5 years ago, Chronic diarrhea Referring MD: Wendi Bryant, DMonserratO. Providers: Rodrick Booker M.D. Impression: - Tortuous [...] by the physician, the nurse and the inflated ball molder in the endoscopy suite. Mental Status Examination: [...] scope was passed under direct vision. TheColonoscope [id number] was introduced through the anus and advanced [...] 9:08 AM Procedure Code(s): --- Professional --- 38111, Colonoscopy, flexible; with biopsy, single or multiple --- Technical --- 05824, Colonoscopy, flexible; with biopsy, single or multiple [...] congenital malformations of intestine CPT copyright 2020 [employer]. All rights reserved. The codes documented in this report are preliminary and upon administrative office manager reviewmay be revised to meet current compliance requirements. Recognized by the [employer] for promoting quality in endoscopy us Rodrick Booker MD ENDOSCOPY PROCEDURES Final Resul t * Hepatitis C antibody (01/22/2021 5:22 PM CDT) Hep C Ab Nonreactive Nonreactive [facility] Comment:Antibodies to HCV no t detected. Does NOT exclude the possibility of recent exposure to HCV. Blood specimen (specimen) 01/22/2021 5:22 PM CDT 01/22/2021 5:59 PM CDT us Beth Sierra MD LAB MICROBIOLOGY - GENERAL ORD ERABLES Edited Result - Final [facility] [address] Department [place] [address] from Last 3 Months or Most Recently Relevant to Health Maintenance Insurance [facility] MEDICARE ADVANTAGE [facility] MEDIC[facility] Address: [address] [address] [place] [address] [employer] MEDICARE ADVANTAGE [facility] Address: [address] [address] [place] [address] [facility] MEDICARE ADVANTAGE [employer] Advance Directives For more information, please contact: [phone] * Full Code (Latest Code Status on [...] 7:41 AM 06/28/2023 2:18 PM Care Teams Tow Car Driver Relationship Specialty Start Date End Date Jad Gonsales MD [address] [facility] [facility] [address] [place] [address] PCP - General Family Medicine 01/15/24 Connie Jordan MD [address] [place] [address] Consulting Physician Sleep Medicine 01/16/23 Rodrick Booker MD [address] [facility] [place] [address] Consulting Physician Gastroenterology 01/16/23 Leonila Mac MD [address] [facility] [place] [address] Consulting Physician Endocrinology 01/16/23 Koko Demarco MD [address] [facility] [address] [facility] [address] [place] [address] Consulting Physician General Surgery 01/18/24
--- OUTSIDE RECORDS SUMMARY | 2024-09-23 15:21 | XMS_ITS | Encounter Summary ---
Author Organization Replaced By [facility] [employer] [facility] work Address [address] [place] [address] Care Team Providers Care Sfdc Solution Architect Name Role Phone Neo Del Cid MD Primary Care Provider Encounter Details Date Type Department Care Team (Late st Contact Info) Description 11/24/2021 Telephone [facility] [address] [facility] [place] [address] Connie Aguilar NP [address] [place] [address] Social History Tobacco Use Types Packs/Day Years Used Date Smoking Tobacco: Never Smokeless Tobacco: Never Alcohol Use Standard Drinks/Week Comments Yes 12 (1 standard drink = 0.6 oz pu re alcohol) Humiliation, Afraid, Rape, and Kick questionnair e Answer Date Recorded Within the last year, have y ou been afraid of your partner or ex-partner? No 10/18/2021 Within the last year, have y ou been humiliated or emotionally abused in other ways by your partner or ex-partner? No Within the last year, have y ou been kicked, hit, slapped, or otherwise physically hurt by your partner or ex-partner? No 10/18/2021 Within the last year, have y ou been raped or forced to have any kind of sexual activity by your partner or ex-partner? No 10/18/2021 Social Connection and Isolat ion Panel [NHANES] Answer Date Recorded In a typical week, how many times do you talk on the phone with family, friends, or neighbors? More than three times a week 10/18/2021 How often do you get togethe r with friends or relatives? Never 10/18/2021 How often do you attend chur ch or taoism services? Never 10/18/2021 Do you belong to any clubs o r organizations such as roman catholic groups, unions, fraternal or athletic groups, or school groups? No 10/18/2021 How often do you attend meet ings of the clubs or organizations you belong to? Never 10/18/2021 Are you , , di vorced, , never , or living with a partner? 10/18/2021 AUDIT-C Answer Date Recorded Q1: How often do you have a drink containing alcohol? 4 or more times a week 10/18/2021 Q2: How many drinks containi ng alcohol do you have on a typical day when you are drinking? 3 or 4 Q3: How often do you have si x or more drinks on one occasion? Never 10/18/2021 Overall Financial Resource Strain (CARDIA) Answe r Date Recorded How hard is it for you to pa y for the very basics like food, housing, medical care, and heating? Somewhat hard 10/18/2021 PHQ-2 Answer Date Recorded Depression Risk Score 6 11/04/2021 [facility] - Occupational Stress Questionnaire Answer Date Recorded Do you feel stress - tense, restless, nervous, or anxious, or unable to sleep at night because your mind is troubled all the time - these days? Very much 10/18/2021 Exercise Vital Sign Answer Date Recorde d On average, how many days pe r week do you engage in moderate to strenuous exercise (like a brisk walk)? 0 days 10/18/2021 On average, how many minutes do you engage in exercise at this level? 0 min 10/18/2021 Hunger Vital Sign Answer Date Recorded Within the past 12 months, y ou worried that your food would run out before you got the money to buy more. Never true 10/19/19 22 Within the past 12 months, t he food you bought just didn't last and you didn't have money to get more. Never true 10/18/2021 PRAPARE - Transportation Answer Date Re corded In the past 12 months, has l ack of transportation kept you from medical appointments or from getting medications? No 02/2022 In the past 12 months, has l ack of transportation kept you from meetings, work, or from getting things needed for daily living? No 10/18/2021 Housing Stability Vital Sign Answer Kevin e Recorded In the last 12 months, was t here a time when you were not able to pay the mortgage or rent on time? Yes 10/18/2021 Number of Places Lived in the Last Year Not on f ile 10/18/2021 In the last 12 months, was t here a time when you did not have a steady place to sleep or slept in a mcfp (including now)? No 10/18/2021 Comments No Sex and Gender Information Value Date Recorded Sex Assigned at Female 08/26/2021 2:49 PM EDT Legal Sex Female 4:46 PM EDT Gender Identity Female 08/26/2021 2:49 PM EDT Sexual Orientation Not on file COVID-19 Exposure Response Date Recorded In the last 10 days, have yo u been in contact with someone who was confirmed or suspected to have Coronavirus/COVID-19? No / Unsure 11/23/2021 1:24 PM EDT documented as of this encounter Miscellaneous Notes * Telephone Encounter - Merle Roca - 11/24/2021 1:43 PM EDTSummary: OP Lab 11/23/2021 Visit Patient came into [facility] [facility] on 11/23/2021 to get labs drawn for EVERETT Aguilar. Patient was expressing the of her dog and patient had stated I want to kill myself, but I can't because I'll never see her again. Patient was very upset. I spoke to Jessica Torres MA and informed her of the conversation the patient and I had yesterday and what was said during the lab visit. documented in this encounter Plan of Treatment Not on file documented as of this encounter Visit Diagnoses Not on filedocumented in this encounter Care Teams Sfdc Solution Architect Relationship Specialty Start Date End Date Neo Del Cid MD [address] [facility] [address] [place] [address] PCP - General Family Medicine 08/26/21 05/01/23 documented as of this encounter
--- OUTSIDE RECORDS SUMMARY | 2024-09-23 15:21 | XMS_ITS | Clinical Summary ---
Author Organization [facility] work Address [address] [place] [address] Care Team Providers Care Whip Operator Name Role Phone Unavailable Primary Care Provider Unavailabl e Allergies Active Allergy Reactions Criticality Noted Date Comments Penicillins Rash Medium 08/26/2021 Medications ergocalciferol, vitamin D2, (VITAMIN D ORAL) Take. Act umm ketoconazole (NIZORAL) 2 % shampooIndications :Seborrheic dermatitis Apply topically twice a week. Apply 5 to 10 mL to wet scalp, lather, leave on 3 to 5 minutes, and rinse; apply twice weekly for 2 to 4 weeks. 120 mL 1 2 Active polymyxin B sulf-trimethoprim (POLYTRIM) 10,000 unit- 1 mg/mL ophthalmic solutionIndication s:Conjunctivitis of right eye, unspecified conjunctivitis type Place ONE drop into the right eye every 3 (three) hours. 10 mL 2 Active FLUoxetine (PROZAC) 40 MG capsule Take ONE capsule (40 mg total) by mouth daily. 90 capsule 2 Active gabapentin (NEURONTIN) 600 MG tablet Take ONE tablet (600 mg total) by mouth 3 (three) times daily. 90 tablet 1 2 Active levoTHYROXINE 75 MCG tablet Take ONE tablet (75 mcg total) by mouth every morning before breakfast. Take with an empty stomach. 90 tablet 2 Active pantoprazole (PROTONIX) 40 MG delayed release tablet Take ONE tablet (40 mg total) by mouth every morning. 90 tablet 2 Active oxybutynin (DITROPAN) 5 MG tablet Take ONE tablet (5 mg total) by mouth daily. 90 tablet 2 Active metFORMIN (GLUCOPHAGE-XR) 500 MG 24 hr tablet Take ONE tablet (500 mg total) by mouth daily. 90 tablet 1 2 Active atorvastatin (LIPITOR) 40 MG tablet Take ONE tablet (40 mg total) by mouth nightly. 90 tablet 1 2 Active amLODIPine (NORVASC) 10 MG tabletIndications: Primary hypertension Take ONE tablet (10 mg total) by mouth daily. 90 tablet 1 2 Active hydrochlorothiazid e (HYDRODIURIL) 25 MG tabletIndications: Primary hypertension Take ONE tablet (25 mg total) by mouth daily. 90 tablet 2 Active losartan (COZAAR) 100 MG tabletIndications: Primary hypertension Take ONE tablet (100 mg total) by mouth daily. 90 tablet 2 Active rOPINIRole (REQUIP) 4 MG tabletIndications: Restless leg Take ONE tablet (4 mg total) by mouth nightly. 90 tablet 2 Active traZODone 100 MG tablet Take ONE tablet (100 mg total) by mouth nightly. 30 tablet 3 Active Active Problems Problem Noted Date Diagnosed Date Type 2 diabetes mellitus wit h hyperglycemia, without long-term current use of insulin 02/25/2022 Pure hypercholesterolemia 11/23/2021 Hypothyroidism 11/23/2021 Rosacea 09/15/2021 Bipolar 2 disorder 09/15/2021 Restless leg Hypertension Family History * Patient is adopted Medical History Relation Comments Diabetes Mother Cancer - Breast Sister Cancer - Ovarian Neg Hx Relation Status Comments Father Mother Sister Alive Social History Tobacco Use Types Packs/Day Years Used Date Smoking Tobacco: Never Smokeless Tobacco: Never Alcohol Use Standard Drinks/Week Comments Yes 0 (1 standard drink = 0.6 oz pur e alcohol) 6 edgard vee Humiliation, Afraid, Rape, and Kick questionnair e [...] 10/18/2021 How often do you attend chur or oriental orthodox services? Never 10/18/2021 Do you belong to any clubs o r organizations such as lutheran groups, unions, fraternal or athletic groups, or [...] PHQ-2 Answer Date Recorded Depression Risk Score 4 02/21/2022 [facility] Answer Date Recorded [...] PM EDT Sexual Orientation Not on file Last Filed Vital Signs Vital Sign Reading Time Taken Comments Blood Pressure 154/79 02/24/2022 12:33 PM EDT Pulse 63 02/24/2022 12:33 PM EDT Temperature 36.9 C (98.5 F) 02/24/2022 12:33 PM EDT Respiratory Rate 16 02/24/2022 12:33 PM EDT Oxygen Saturation 98% 02/24/2022 12:33 PM EDT Inhaled Oxygen Concentration - - Weight 100.2 kg (221 lb) 02/24/2022 12:33 PM EDT Height 157.5 cm (5' 2 ) 02/24/2022 12:33 PM EDT Body Mass Index 40.42 02/24/2022 12:33 PM EDT Plan of Treatment Health Maintenance Due Date Last Done Comments CT Colonography Colorectal C ancer Screening 1955 Colonoscopy Colorectal Cancer Screening 1955 Colorectal Cancer Screening 1955 Diabetes Foot Exam 1955 FIT-DNA (Cologuard) Colorect al Cancer Screening 1955 FOBT Colorectal Cancer Screening 1955 SDOH 1955 Sigmoidoscopy Colorectal Cancer Screening 1955 Pneumococcal Vaccine: 50+ Ye ars (1 of 2 - PCV) 1976 Tetanus/Pertussis Adult Vacc ine (One-time Booster) 1976 Zoster Vaccines (1 of 2) 2007 Nephropathy Screening 02/24/2022 Bone Density Screening (DXA) ONCE age 65-85 2022 Diabetes Hemoglobin A1c Screening 08/21/2022 022, 08/26/2021 Mammogram 12/30/2022 12/30/2021 Annual Physical Exam 02/21/2023 02/21/2022 Hypertension Annual Blood Pr essure Screening 02/24/2023 02/24/2022 Diabetes Ophthalmology Exam 02/26/2023 02/26/2022 COVID-19 Vaccine ( season) 2024 Annual Adult Depression Screen 06/12/2024 Influenza Vaccine (Season Ended) 2025 RSV Vaccine (1 - 1-dose 75+ series) 2032 Hepatitis C Screening Completed 02/21/2022 Procedures Procedure Name Priority Date/Time Associated Diagnosis Comments DIABETES EYE EXAM Routine 02/26/2022 HEMOGLOBIN A1C Routine 02/21/2022 2:44 PM EDT Elevated hemoglobin A1c HEPATITIS C ANTIBODY WITH REFLEX TO QUANTITATIVE REALTIME PCR SCREEN Routine 02/21/2022 2:44 PM EDT Need for hepatitis C screening test MAMMO SCREENING BILATERAL WITH TOMOSYNTHESIS Routine 12/30/2021 1:21 PM EDT Screening mammogram for breast cancer from Last 3 Months or Most Recently Relevant to Health Maintenance Results * HM DIABETES EYE EXAM (02/26/2022) Dilated Eye Exam No retinopathy us Historical Provider MD HEALTH MAINTENANCE Final Result * (ABNORMAL) HEMOGLOBIN A1C (02/21/2022 2:44 PM EDT) Hemoglobin A1C 6.9(H) 4.8 - 5.9 % [facility] 02/21/2022 7:01 PM EDT [facility] Estimated Average Glucose 151 mg/dL ECL 02/21/2022 7:01 PM EDT [facility] Blood VENOUS BLOOD SPECIMEN / Unknown Venipuncture / Unknown 02/21/2022 2:44 PM EDT 02/21/2022 6:24 PM EDT Narrative [facility] - 02/21/2022 7:01 PM EDT eAG (Estimated Average Glucose) is a calculation of what the average glucose would have been over the period of time from which the Hgb A1C is derived. Neo Del Cid MD LAB BLOOD ORDERS (BELKIS R) Final Result Performing Organization Address [facility] de Phone Number [facility] [address] [place], [place] [id number] * HEPATITIS C SCREEN (02/21/2022 2:44 PM EDT) [facility] Hepatitis C Antibody Interpretation HEPATITIS C ANTIBODY NOT DETECTED Nonreactive [facility] 02/21/2022 7:30 PM EDT [facility] Cut off Index (COI) 0.04 <1.00 COI [facility] 02/21/2022 7:30 PM EDT [facility] Blood VENOUS BLOOD SPECIMEN / Unknown Venipuncture / Unknown 02/21/2022 2:44 PM EDT 02/21/2022 6:23 PM EDT Neo Del Cid MD LAB BLOOD ORDERS (BEAKE R) Final Result Performing Organization Address [facility] Co de Phone Number [facility] [address] [place], [place] [phone] * Mammo screening bilateral with tomosynthesis (12/30/2021 1:21 PM EDT) Anatomical Region Laterality Modality Breast Bilateral Mammography 12/31/2021 1:33 PM EDT Narrative 12/31/2021 1:52 PM EDT EXAM: MAMMO SCREENING BILATERAL WITH CAD AND CORAL INDICATION: Screen Tech Comments: SCREENING-NO PROB COMPARISON: 10/19/2020 TECHNIQUE: Bilateral digital mammogram was performed with COMPUTER-AIDED DETECTION. In addition, 15 low-dose images were obtained in each projection. These low-dose images were reconstructed into 1 mm thick slices and reviewed on the soft copy workstation. ACR BREAST DENSITY: There are scattered areas of fibroglandular density. FINDINGS: Stable left breast asymmetry and calcifications. This was also reported as stable compared to older comparison exams from 2010, 2012, 2015 according to the report from the outside facility. There are no new suspicious masses, suspicious calcifications, or architectural distortion. IMPRESSION: No new mammographic evidence of malignancy. BI-RADS CATEGORY: 2 - Benign Finding(s) (BIRADS Category 2) RECOMMENDATION: Monthly breast self examination. Annual physical examination. Screening mammogram in one year. (Code:SM-B-01Y) The patient will be notified of these results in writing. The patient will also receive a reminder prior to their next mammogram. Electronically Signed By: Maurice Seo M.D. On: 12/31/2021 1:52:14 PM On: [id number] Procedure Note Maurice Seo MD - 12/31/2021 EXAM: MAMMO SCREENING BILATERAL WITH CAD AND CORAL INDICATION: Screen Tech Comments: SCREENING-NO PROB COMPARISON: 10/19/2020 TECHNIQUE: Bilateral digital mammogram was performed with COMPUTER-AIDED DETECTION.In addition, 15 low-dose images were obtained in each projection. Theselow-dose images were reconstructed into 1 mm thick slices and reviewed onthe soft copy workstation. ACR BREAST DENSITY: There are scattered areas of fibroglandular density. FINDINGS: Stable left breast asymmetry and calcifications. This was also reportedas stable compared to older comparison exams from 2010, 2012, 2015according to the report from the outside facility. There are no newsuspicious masses, suspicious calcifications, or architecturaldistortion. IMPRESSION: No new mammographic evidence of malignancy. BI-RADS CATEGORY: 2 - Benign Finding(s) (BIRADS Category 2) RECOMMENDATION: Monthly breast self examination. Annual physical examination. Screening mammogram in one year. (Code:SM-B-01Y) The patient will be notified of these results in writing. The patientwill also receive a reminder prior to their next mammogram. Electronically Signed By: Maurice Seo M.D. On: 12/31/2021 1:52:14 PM On: [id number] Neo Del Cid MD IMG MAMMOGRAPHY ORDERAB LES Final Result from Last 3 Months or Most Recently Relevant to Health Maintenance Insurance [facility] HIP
--- OUTSIDE RECORDS SUMMARY | 2024-09-23 15:21 | XMS_ITS | Encounter Summary ---
Author Organization [facility] work Address [address] [place] [id number] Care Team Providers Care Inner Tube Cutter Name Role Phone Neo Del Cid MD Primary Care Provider Reason for Visit * Reason Comments Medication Refill Encounter Details Date Type Department Care Team (Late st Contact Info) Description 12/31/2021 Refill [facility] [address] [place] [address] Connie Aguilar, [place] [address] [place] [address] Medication Refill Social History Tobacco Use Types Packs/Day Years [...] often do you attend chur ch or advent services? Never 10/18/2021 Do you belong to any clubs o r organizations such as yazidi groups, unions, fraternal or athletic groups, or [...] Answer Date Recorded Depression Risk Score 6 12/27/2021 [facility] - Occupational Stress [...] place to sleep or slept in a correction (including now)? No 10/18/2021 Comments No Sex [...] suspected to have Coronavirus/COVID-19? No / Unsure 12/27/2021 9:28 AM EDT documented as of this encounter Miscellaneous Notes * Telephone Encounter - [facility], Protocol - 12/31/2021 9:08 AM EDT No new care gaps identified. [facility] Embedded Care Gaps. Reference number: [id number]. 12/31/2021 9:08:52 AM EDT documented in this encounter Plan of Treatment Not on file documented as of this encounter Visit Diagnoses Diagnosis Restless leg Restless legs syndrome (RLS) documented in this encounter Care Teams Inner Tube Cutter Relationship Specialty Start Date End Date Neo Del Cid MD [address] [place] [address] [place] [id number] PCP - General Family Medicine 08/26/21 05/01/23 documented as of this encounter
--- OUTSIDE RECORDS SUMMARY | 2024-09-23 15:21 | XMS_ITS | Encounter Summary ---
Author Organization [facility] work Address [address] [place] [address] Care Team Providers Care National Recruiter Name Role Phone Neo Del Cid MD Primary Care Provider Encounter Details Date Type Department Care Team (Late st Contact Info) Description 03/02/2022 Abstract [facility] [address] [place] [phone] Jessica Torres RMA Social History Tobacco Use Types Packs/Day Years [...] Never 10/18/2021 How often do you attend [facility] or latter-day services? Never 10/18/2021 Do you belong to any clubs o r organizations such as jain groups, unions, fraternal or athletic groups, or [...] Date Recorded Depression Risk Score 4 02/21/2022 [facility] - Occupational Stress Questionnaire Answer Date [...] place to sleep or slept in a nursing home (including now)? No 10/18/2021 Comments No Sex [...] suspected to have Coronavirus/COVID-19? No / Unsure 02/24/2022 12:30 PM EDT documented as of this encounter Plan of Treatment Not on file documented as of this encounter Procedures Procedure Name Priority Date/Time Associated Diagnosis Comments DIABETES EYE EXAM Routine 02/26/2022 documented in this encounter Results * DIABETES EYE EXAM (02/26/2022) Dilated Eye Exam No retinopathy us Historical Provider HEALTH MAINTENANCE Final Result documented in this encounter Visit Diagnoses Not on filedocumented in this encounter Care Teams National Recruiter Relationship Specialty Start Date End Date Neo Del Cid MD [address] [place] [address] [address] [place] [phone] PCP - General Family Medicine 08/26/21 05/01/23 documented as of this encounter
== END 2024-09-23 15:03 | disposition home or self-care (01) ==
PROVIDERS: Emergency Provider Nurse Practitioner Family; PCP Family Medicine
DX: S92.355A Nondisplaced fracture of fifth metatarsal bone, left foot, initial encounter for closed fracture (principal); W07.XXXA Fall from chair, initial encounter; I10 Essential (primary) hypertension; E11.9 Type 2 diabetes mellitus without complications
CPT/HCPCS: 73630; 99214; G0463